=== PATIENT | male | born 1960 | race Caucasian/White ===

== ENCOUNTER → 2016-03-28 | Outpatient (CLI) | payer MEDICAID ==
[~2016-03-28] MED LIST: ALB0.5V IH; ALBU2.5V4 NEB; ALBU8.5H2 IH; AMLO10TA82 PO; AMOX500C2 PO; ARPZ30T PO; ASPI-999 PO; ATOR10TA66 PO; AZIT-21 PO; AZIT250T PO; BENA10TA2 PO; BENZ0.5T3 PO; BNZT1T PO; CANA100T PO; CANA300T PO; CEPH250T PO; CLIN300C3 PO; CPR500T PO; CYCL1DRO OP; CYCL1DRO OU; DEXL60CA5 PO; DOXY100C2 PO; DULO60CA6 PO; FERR325C PO; FLC150T PO; FLUSH PO; FLUT1DIS28 IH; GBPN300C PO; HALO5TAB PO; HALO5TAB17 PO; HUMULIN; HYDR-2856 PO; HYDR-2890 PO; HYDR-34 PO; HYDR1TAB86 PO; HYDR50TA76 PO; INSU100C4 SQ; INSU100V3 SQ; IRON45TA2 PO; LNS30CCR PO; LORA0.5T PO; MAGN400T6 PO; MELO-195 PO; METO25TA4 PO; METR500T PO; MTF500T PO; MULT-963 PO; NAPR-243 PO; NYST1POW15 TOP; PALI6TAB2 PO; PENI500T PO; POTA20TA7 PO; PRD20T PO; RISP0.5T24 PO; ROFL500T PO; SCR1T1 PO; SULF1TAB38 PO; TESTOSTERONE PO; TIOT18CA2 IH; TRAZ150T42 PO; TRAZ150T72 PO; TRZ100T PO; WRF3T PO
--- OUTSIDE RECORDS SUMMARY | 2016-03-28 09:42 | XMS REPORT | Continuity of Care Document ---
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 07/22/2011 Ot 278.01 MORBID OBESITY 07/22/2011 Ot 285.9 ANEMIA NOS 07/22/2011 Ot 295.90 SCHIZOPHRENIA NOS-UNSPEC 07/22/2011 Ot 327.23 OBSTRUCTIVE SLEEP APNEA (ADULT) (PEDIATR 07/22/2011 Ot 491.21 OBSTR CHRONIC BRONCHITIS, W (ACUTE) EXAC 07/22/2011 Ot 507.0 FOOD/VOMIT PNEUMONITIS 07/22/2011 Ot 530.81 ESOPHAGEAL REFLUX 07/22/2011 Ot 785.52 SEPTIC SHOCK 07/22/2011 Ot 790.29 OTHER ABNORMAL GLUCOSE 07/22/2011 Ot 995.92 SEVERE SEPSIS 07/22/2011 Ot V85.41 BODY MASS INDEX 40.0-44.9, ADULT 11/18/2011 Ot 496 CHR AIRWAY OBSTRUCT NEC 11/18/2011 Ot 781.2 ABNORMALITY OF GAIT 11/18/2011 Ot V57.1 PHYSICAL THERAPY NEC 12/19/2011 Ot 453.40 ACUTE VENOUS EMBOLISM THROMBOSIS UNSP 02/18/2012 Ot 453.40 ACUTE VENOUS EMBOLISM THROMBOSIS UNSP 04/20/2012 Ot 530.11 REFLUX ESOPHAGITIS 04/20/2012 Ot 532.90 DUODENAL ULCER NOS 04/20/2012 Ot 535.50 UNSP GASTRITIS GASTRODUODENITIS W/O ME 04/25/2012 Ot 250.00 DIAB TING WO COMPL, TYPE II OR UNSPEC TY 04/25/2012 Ot 305.1 TOBACCO USE DISORDER 04/25/2012 Ot 401.9 HYPERTENSION NOS 04/25/2012 Ot 496 CHR AIRWAY OBSTRUCT NEC 04/25/2012 Ot 530.81 ESOPHAGEAL REFLUX 04/25/2012 Ot 533.90 PEPTIC ULCER NOS 04/25/2012 Ot 564.00 UNSPEC CONSTIPATION 04/25/2012 Ot 715.90 OSTEOARTHROS NOS-UNSPEC 04/25/2012 Ot 786.59 CHEST PAIN NEC 04/25/2012 Ot V12.51 HX-VENOUS THROMBOSIS EMBOLISM 06/07/2012 Ot 453.40 ACUTE VENOUS EMBOLISM THROMBOSIS UNSP 11/09/2012 JON MEADOWS, PAM Cruz Ot 112.3 CUTANEOUS CANDIDIASIS 11/09/2012 JON MEADOWS, PAM Cruz Ot 250.00 DIAB TING WO COMPL, TYPE II OR UNSPEC TY 11/09/2012 JON MEADOWS, PAM Cruz Ot 491.21 OBSTR CHRONIC BRONCHITIS, W (ACUTE) EXAC 11/09/2012 JON MEADOWS, PAM Cruz Ot 786.05 SHORTNESS OF BREATH 11/09/2012 JON MEADOWS, PAM Cruz Ot 787.01 NAUSEA WITH VOMITING 01/24/2013 YEN DURÁN DO Ot 250.02 DIAB TING WO COMPL, TYPE II OR UNSPEC TY 01/24/2013 YEN DURÁN DO Ot 276.51 DEHYDRATION 01/24/2013 YEN DURÁN DO Ot 278.01 MORBID OBESITY 01/24/2013 YEN DURÁN DO Ot 295.90 SCHIZOPHRENIA NOS-UNSPEC 01/24/2013 YEN DURÁN DO Ot 300.00 ANXIETY STATE NOS 01/24/2013 YEN DURÁN DO Ot 305.1 TOBACCO USE DISORDER 01/24/2013 YEN DURÁN DO Ot 311 DEPRESSIVE DISORDER NEC 01/24/2013 YEN DURÁN DO Ot 401.9 HYPERTENSION NOS 01/24/2013 YEN DURÁN DO Ot 496 CHR AIRWAY OBSTRUCT NEC 01/24/2013 YEN DURÁN DO Ot 530.81 ESOPHAGEAL REFLUX 01/24/2013 YEN DURÁN DO Ot 536.8 STOMACH FUNCTION DIS NEC 01/24/2013 YEN DURÁN DO Ot 552.21 OBSTR INCISIONAL HERNIA 01/24/2013 YEN DURÁN DO Ot 715.90 OSTEOARTHROS NOS-UNSPEC 01/24/2013 YEN DURÁN DO Ot 737.10 KYPHOSIS NOS 01/24/2013 LUIS ARMANDO RENOYEN Ot V18.0 FAM HX-DIABETES MELLITUS 01/24/2013 LUIS ARMANDO RENOYEN Ot V58.67 LONG-TERM (CURRENT) USE OF INSULIN 01/24/2013 LUIS ARMANDO RENOYEN Ot V85.41 BODY MASS INDEX 40.0-44.9, ADULT 03/13/2013 LUIS ARMANDO RENOYEN Ot 041.12 METHICILLIN RESISTANT STAPHYLOCOCCUS AUR 03/13/2013 LUIS ARMANDO RENOYEN Ot 250.00 DIAB TING WO COMPL, TYPE II OR UNSPEC TY 03/13/2013 SHONDER YEN Ot 278.00 OBESITY, NOS 03/13/2013 LUIS ARMANDO RENOYEN Ot 295.90 SCHIZOPHRENIA NOS-UNSPEC 03/13/2013 LUIS ARMANDO RENOYEN Ot 300.00 ANXIETY STATE NOS 03/13/2013 LUIS ARMANDO RENOYEN Ot 305.1 TOBACCO USE DISORDER 03/13/2013 LUIS ARMANDO RENOYEN Ot 311 DEPRESSIVE DISORDER NEC 03/13/2013 LUIS ARMANDO RENOYEN Ot 401.9 HYPERTENSION NOS 03/13/2013 LUIS ARMANDO RENOYEN Ot 496 CHR AIRWAY OBSTRUCT NEC 03/13/2013 LUIS ARMANDO RENOYEN Ot 530.81 ESOPHAGEAL REFLUX 03/13/2013 LUIS ARMANDO RENOYEN Ot 553.29 VENTRAL HERNIA NEC 03/13/2013 LUIS ARMANDO RENOYEN Ot 682.3 CELLULITIS OF ARM 03/13/2013 LUIS ARMANDO RENOYEN Ot 705.83 HIDRADENITIS 03/13/2013 LUIS ARMANDO RENOYEN Ot 716.90 ARTHROPATHY NOS-UNSPEC 03/13/2013 LUIS ARMANDO RENOYEN Ot 780.4 DIZZINESS AND GIDDINESS 03/13/2013 LUIS ARMANDO RENOYEN Ot V12.71 PERSONAL HISTORY OF PEPTIC ULCER DISEASE 03/13/2013 LUIS ARMANDO RENOYEN Ot V15.81 HX OF PAST NONCOMPLIANCE 03/13/2013 LUIS ARMANDO RENOYEN Ot V85.41 BODY MASS INDEX 40.0-44.9, ADULT 11/25/2013 GIOVANNI JUAREZ DO Ot 300.00 ANXIETY STATE NOS 11/25/2013 GIOVANNI JUAREZ DO Ot V58.69 OTH MED,LT,CURRENT USE 12/18/2013 [employer] APRN Ot 724.2 LUMBAGO 01/01/2014 CHAVEZ THOMPSON Ot 521.00 UNSPEC DENTAL CARIES 01/01/2014 CHAVEZ THOMPSON Ot 522.5 PERIAPICAL ABSCESS 01/01/2014 CHAVEZ THOMPSON Ot 525.9 DENTAL DISORDER NOS 01/05/2014 Ot 715.35 01/05/2014 Ot 722.52 01/05/2014 Ot 715.36 01/05/2014 Ot V58.61 01/05/2014 Ot V58.83 01/05/2014 Ot V58.61 01/05/2014 Ot V58.83 01/05/2014 Ot 285.9 01/05/2014 Ot 401.9 01/05/2014 Ot 428.0 01/05/2014 Ot 453.40 01/05/2014 Ot 285.9 01/05/2014 Ot 401.9 01/05/2014 Ot 428.0 01/05/2014 Ot 453.40 01/05/2014 Ot V72.84 01/05/2014 Ot 453.40 01/05/2014 AISHA GRULLON MD Ot 715.95 01/05/2014 AISHA GRULLON MD Ot 722.52 01/05/2014 AMY ROJAS DO Ot 278.01 01/05/2014 AMY ROJAS DO Ot 300.00 01/05/2014 AMY ROJAS DO Ot 311 01/05/2014 AMY ROJAS DO Ot 496 01/05/2014 AMY ROJAS DO Ot 530.81 01/05/2014 AMY ROJAS DO Ot 780.79 01/05/2014 AMY ROJAS DO Ot 786.09 01/05/2014 Ot 250.00 01/05/2014 Ot 272.4 01/05/2014 Ot 414.00 01/05/2014 YEN DURÁN DO Ot 721.3 01/06/2014 YEN DURÁN DO Ot 721.3 01/13/2014 ANN MATA MD Ot 295.90 SCHIZOPHRENIA NOS-UNSPEC 01/13/2014 ANN MATA MD Ot 300.00 ANXIETY STATE NOS 01/13/2014 ANN MATA MD Ot 311 DEPRESSIVE DISORDER NEC 01/13/2014 ADOLFO MEADOWS, ANN Khan Ot V58.69 OTH MED,LT,CURRENT USE 01/23/2014 CHAVEZ THOMPSON Ot 295.90 SCHIZOPHRENIA NOS-UNSPEC 01/23/2014 CHAVEZ THOMPSON Ot 300.00 ANXIETY STATE NOS 01/23/2014 CHAVEZ THOMPSON Ot 311 DEPRESSIVE DISORDER NEC 02/04/2014 AMY ROJAS DO Ot 496 02/04/2014 YEN DURÁN DO Ot 250.00 02/04/2014 YEN DURÁN DO A Ot 496 03/11/2014 JON MEADOWS, PAM Cruz Ot 295.90 SCHIZOPHRENIA NOS-UNSPEC 03/11/2014 PAM WEBB MD Ot V62.84 SUICIDAL IDEATION 03/11/2014 PAM WEBB MD Ot V62.85 HOMICIDAL IDEATION 04/18/2014 Ot 295.90 SCHIZOPHRENIA NOS-UNSPEC 05/11/2014 Ot 715.35 05/11/2014 Ot 722.52 05/11/2014 Ot 715.36 05/11/2014 Ot V58.61 05/11/2014 Ot V58.83 05/11/2014 Ot V58.61 05/11/2014 Ot V58.83 05/11/2014 Ot 285.9 05/11/2014 Ot 401.9 05/11/2014 Ot 428.0 05/11/2014 Ot 453.40 05/11/2014 Ot 285.9 05/11/2014 Ot 401.9 05/11/2014 Ot 428.0 05/11/2014 Ot 453.40 05/11/2014 Ot V72.84 05/11/2014 Ot 453.40 05/11/2014 AISHA GRULLON MD Ot 715.95 05/11/2014 AISHA GRULLON MD Ot 722.52 05/11/2014 AMY ROJAS DO Ot 278.01 05/11/2014 AMY ROJAS DO Ot 300.00 05/11/2014 AMY ROJAS DO Ot 311 05/11/2014 AMY ROJAS DO Ot 496 05/11/2014 AMY ROJAS DO Ot 530.81 05/11/2014 AMY ROJAS DO Ot 780.79 05/11/2014 CRYSTAL AMY RENO Ot 786.09 05/11/2014 CRYSTAL DOAMY Ot 496 05/11/2014 Ot 250.00 05/11/2014 Ot 272.4 05/11/2014 Ot 414.00 05/11/2014 GELLENDER DO, YEN Daniels Ot 721.3 05/11/2014 GELLENDER DO, YEN Daniels Ot 250.00 05/11/2014 GELLENDER DO, YEN Daniels Ot 496 05/12/2014 GELLENDER DO, YEN Daniels Ot 716.90 05/12/2014 GELLENDER DO, YEN Daniels Ot 719.7 05/12/2014 GELLENDER DO, YEN Daniels Ot V57.1 05/16/2014 GELLENDER DO, YEN Daniels Ot 716.90 05/16/2014 GELLENDER DO, YEN Daniels Ot 719.7 05/16/2014 GELLENDER DO, YEN Daniels Ot V57.1 05/18/2014 GELLENDER DO, YEN Daniels Ot 716.90 05/18/2014 GELLENDER DO, YEN Daniels Ot 719.7 05/18/2014 GELLENDER DO, YEN Daniels Ot V57.1 05/18/2014 GELLENDER DO, YEN Daniels Ot 716.90 05/18/2014 GELLENDER DO, YEN Daniels Ot 719.7 05/18/2014 GELLENDER DO, YEN Daniels Ot V57.1 05/20/2014 GELLENDER DO, YEN Daniels Ot 716.90 05/20/2014 GELLENDER DO, YEN Daniels Ot 719.7 05/20/2014 GELLENDER DO, YEN Daniels Ot V57.1 05/20/2014 GELLENDER DO, YEN Daniels Ot 716.90 05/20/2014 GELLENDER DO, YEN Daniels Ot 719.7 05/20/2014 GELLENDER DO, YEN Daniels Ot V57.1 05/24/2014 Ot 715.35 05/24/2014 Ot 722.52 05/24/2014 Ot 715.36 05/24/2014 Ot V58.61 05/24/2014 Ot V58.83 05/24/2014 Ot V58.61 05/24/2014 Ot V58.83 05/24/2014 Ot 285.9 05/24/2014 Ot 401.9 05/24/2014 Ot 428.0 05/24/2014 Ot 453.40 05/24/2014 Ot 285.9 05/24/2014 Ot 401.9 05/24/2014 Ot 428.0 05/24/2014 Ot 453.40 05/24/2014 Ot V72.84 05/24/2014 Ot 453.40 05/24/2014 MITCHEL MEADOWS, AISHA L Ot 715.95 05/24/2014 MITCHLE MEADOWS, AISHA L Ot 722.52 05/24/2014 CRYSTAL DO, AMY M Ot 278.01 05/24/2014 CRYSATL DO, AMY M Ot 300.00 05/24/2014 CRYSTAL DO, AMY M Ot 311 05/24/2014 CRYSTAL DO, AMY M Ot 496 05/24/2014 CRYSTAL DO, AMY M Ot 530.81 05/24/2014 CRYSTAL DO, AMY Nice Ot 780.79 05/24/2014 CRYSTAL DO, AMY Nice Ot 786.09 05/24/2014 CRYSTAL DO, AMY Nice Ot 496 05/24/2014 Ot 250.00 05/24/2014 Ot 272.4 05/24/2014 Ot 414.00 05/24/2014 GELLENDER DO, YEN Daniels Ot 721.3 05/24/2014 GELLENDER DO, YEN Daniels Ot 250.00 05/24/2014 GELLENDER DO, YEN Daniels Ot 496 05/24/2014 GELLENDER DO, YEN Daniels Ot 716.90 05/24/2014 GELLENDER DO, YEN Daniels Ot 719.7 05/24/2014 GELLENDER DO, YEN Daniels Ot V57.1 05/31/2014 GELLENDER DO, YEN Daniels Ot 716.90 05/31/2014 GELLENDER DO, YEN Daniels Ot 719.7 05/31/2014 GELLENDER DO, YEN Daniels Ot V57.1 06/13/2014 GELLENDER DO, YEN Daniels Ot 250.00 06/13/2014 GELLENDER DO, YEN Daniels Ot 272.4 06/17/2014 GELLENDER DO, YEN Daniels Ot 716.90 06/17/2014 GELLENDER DO, YEN Daniels Ot 719.7 06/17/2014 GELLENDER DO, YEN Daniels Ot V57.1 06/17/2014 GELLENDER DO, YEN Daniels Ot 716.90 06/17/2014 GELLENDER DO, YEN Daniels Ot 719.7 06/17/2014 GELLENDER DO, YEN Daniels Ot V57.1 07/18/2014 Ot 715.35 07/18/2014 Ot 722.52 07/18/2014 Ot 715.36 07/18/2014 Ot V58.61 07/18/2014 Ot V58.83 07/18/2014 Ot V58.61 07/18/2014 Ot V58.83 07/18/2014 Ot 285.9 07/18/2014 Ot 401.9 07/18/2014 Ot 428.0 07/18/2014 Ot 453.40 07/18/2014 Ot 285.9 07/18/2014 Ot 401.9 07/18/2014 Ot 428.0 07/18/2014 Ot 453.40 07/18/2014 Ot V72.84 07/18/2014 Ot 453.40 07/18/2014 AISHA GRULLON MD Ot 715.95 07/18/2014 AISHA GRULLON MD Ot 722.52 07/18/2014 CRYSTAL DO, AMY M Ot 278.01 07/18/2014 CRYSTAL DO, AMY M Ot 300.00 07/18/2014 CRYSTAL DO, AMY M Ot 311 07/18/2014 CRYSTAL DO, AMY M Ot 496 07/18/2014 CRYSTAL DO, AMY M Ot 530.81 07/18/2014 CRYSTAL DO, AMY M Ot 780.79 07/18/2014 CRYSTAL DO, AMY M Ot 786.09 07/18/2014 CRYSTAL DO, AMY M Ot 496 07/18/2014 Ot 250.00 07/18/2014 Ot 272.4 07/18/2014 Ot 414.00 07/18/2014 GELLENDER DO, YEN A Ot 721.3 07/18/2014 GELLENDER DO, YEN Daniels Ot 250.00 07/18/2014 GELLENDER DO, YEN Daniels Ot 496 07/18/2014 GELLENDER DO, YEN Daniels Ot 716.90 07/18/2014 GELLENDER DO, YEN Daniels Ot 719.7 07/18/2014 GELLENDER DO, YEN Daniels Ot V57.1 07/18/2014 GELLENDER DO, YEN Daniels Ot 250.00 07/18/2014 GELLENDER DO, YEN Daniels Ot 272.4 07/18/2014 GELLENDER DO, YEN Daniels Ot 716.90 07/18/2014 GELLENDER DO, YEN Daniels Ot 719.7 07/18/2014 GELLENDER DO, YEN Daniels Ot V57.1 07/19/2014 GELLENDER DO, YEN Daniels Ot 716.90 07/19/2014 GELLENDER DO, YEN Daniels Ot 719.7 07/19/2014 GELLENDER DO, YEN Daniels Ot V57.1 08/09/2014 GELLENDER DO, YEN Daniels Ot 716.90 ARTHROPATHY NOS-UNSPEC 08/09/2014 GELLENDER DO, YEN Frances Ot 719.7 DIFFICULTY IN WALKING 08/09/2014 GELLENDER DO, YEN Frances Ot V57.1 PHYSICAL THERAPY NEC 08/09/2014 GELLENDER DO, YEN Daniels Ot 716.90 08/09/2014 GELLENDER DO, YEN Daniels Ot 719.7 08/09/2014 GELLENDER DO, YEN Frances Ot V57.1 08/24/2014 GELLENDER DO, YEN Daniels Ot 716.90 08/24/2014 GELLENDER DO, YEN Daniels Ot 719.7 08/24/2014 GELLENDER DO, YEN Daniels Ot V57.1 08/25/2014 GELLENDER DO, YEN Daniels Ot 716.90 08/25/2014 GELLENDER DO, YEN Daniels Ot 719.7 08/25/2014 GELLENDER DO, YEN Daniels Ot V57.1 08/25/2014 GELLENDER DO, YEN Daniels Ot 716.90 08/25/2014 GELLENDER DO, YEN Frances Ot 719.7 08/25/2014 GELLENDER DO, YEN Frances Ot V57.1 08/25/2014 GELLENDER DO, YEN Frances Ot 716.90 08/25/2014 GELLENDER DO, YEN Daniels Ot 719.7 08/25/2014 GELLENDER DO, YEN Daniels Ot V57.1 08/25/2014 GELLENDER DO, YEN Frances Ot 716.90 08/25/2014 GELLENDER DO, YEN Daniels Ot 719.7 08/25/2014 GELLENDER DO, YEN Daniels Ot V57.1 08/25/2014 GELLENDER DO, YEN A Ot 716.90 08/25/2014 GELLENDER DO, YEN Daniels Ot 719.7 08/25/2014 GELLENDER DO, YEN Daniels Ot V57.1 09/06/2014 GELLENDER DO, YEN Daniels Ot 716.90 09/06/2014 GELLENDER DO, YEN Daniels Ot 719.7 09/06/2014 GELLENDER DO, YEN Daniels Ot V57.1 09/06/2014 GELLENDER DO, YEN Daniels Ot 716.90 09/06/2014 GELLENDER DO, YEN Daniels Ot 719.7 09/06/2014 GELLENDER DO, YEN Daniels Ot V57.1 09/20/2014 GELLENDER DO, YEN Daniels Ot 716.90 09/20/2014 GELLENDER DO, YEN Daniels Ot 719.7 09/20/2014 GELLENDER DO, YEN Daniels Ot V57.1 09/20/2014 GELLENDER DO, YEN Daniels Ot 716.90 09/20/2014 GELLENDER DO, YEN Daniels Ot 719.7 09/20/2014 GELLENDER DO, YEN Daniels Ot V57.1 09/20/2014 GELLENDER DO, YEN Daniels Ot 716.90 09/20/2014 GELLENDER DO, YEN Daniels Ot 719.7 09/20/2014 GELLENDER DO, YEN Daniels Ot V57.1 09/29/2014 GELLENDER DO, YEN Daniels Ot 716.90 ARTHROPATHY NOS-UNSPEC 09/29/2014 GELLENDER DO, YEN Daniels Ot 719.7 DIFFICULTY IN WALKING 09/29/2014 GELLENDER DO, YEN Daniels Ot V57.1 PHYSICAL THERAPY NEC 11/07/2014 GELLENDER DO, YEN Daniels Ot 250.00 11/07/2014 GELLENDER DO, YEN Daniels Ot 496 11/21/2014 Ot 715.35 11/21/2014 Ot 722.52 11/21/2014 Ot 715.36 11/21/2014 Ot V58.61 11/21/2014 Ot V58.83 11/21/2014 Ot V58.61 11/21/2014 Ot V58.83 11/21/2014 Ot 285.9 11/21/2014 Ot 401.9 11/21/2014 Ot 428.0 11/21/2014 Ot 453.40 11/21/2014 Ot 285.9 11/21/2014 Ot 401.9 11/21/2014 Ot 428.0 11/21/2014 Ot 453.40 11/21/2014 Ot V72.84 11/21/2014 Ot 453.40 11/21/2014 MITCHEL MEADOWS, AISHA Mccloud Ot 715.95 11/21/2014 AISHA GRULLON MD Ot 722.52 11/21/2014 CRYSTAL DO, AMY M Ot 278.01 11/21/2014 CRYSTAL DO, AMY M Ot 300.00 11/21/2014 CRYSTAL DO, AMY M Ot 311 11/21/2014 CRYSTAL DO, AMY M Ot 496 11/21/2014 AMY ROJAS DO M Ot 530.81 11/21/2014 CRYSTAL RENO, AMY M Ot 780.79 11/21/2014 CRYSTAL RENO, AMY M Ot 786.09 11/21/2014 AMY ROJAS DO Ot 496 11/21/2014 Ot 250.00 11/21/2014 Ot 272.4 11/21/2014 Ot 414.00 11/21/2014 GELLENDER DO, YEN A Ot 721.3 11/21/2014 GELLENDER DO, YEN A Ot 250.00 11/21/2014 GELLENDER DO, YEN A Ot 496 11/21/2014 GELLENDER DO, YEN A Ot 250.00 11/21/2014 GELLENDER DO, YEN A Ot 272.4 11/21/2014 MELONIE MEADOWS, JENNY Nice Ot V12.72 11/21/2014 MLEONIE MEADOWS, JENNY Nice Ot V72.84 11/21/2014 GELLENDER DO, YEN A Ot 250.00 11/21/2014 GELLENDER DO, YEN A Ot 496 11/21/2014 MELONIE MEADOWS, JENNY Nice Ot Z01.818 11/21/2014 MELONIE MEADOWS, JENNY Nice Ot Z86.010 12/19/2014 MELONIE MEADOWS, JENNY Nice Ot Z09 ENCNTR FOR F/U EXAM AFT TRTMT FOR COND O 12/19/2014 MELONIE MEADOWS, JENNY Nice Ot Z86.010 PERSONAL HISTORY OF COLONIC POLYPS 01/17/2015 Ot 715.35 01/17/2015 Ot 722.52 01/17/2015 Ot 715.36 01/17/2015 Ot V58.61 01/17/2015 Ot V58.83 01/17/2015 Ot V58.61 01/17/2015 Ot V58.83 01/17/2015 Ot 285.9 01/17/2015 Ot 401.9 01/17/2015 Ot 428.0 01/17/2015 Ot 453.40 01/17/2015 Ot 285.9 01/17/2015 Ot 401.9 01/17/2015 Ot 428.0 01/17/2015 Ot 453.40 01/17/2015 Ot V72.84 01/17/2015 Ot 453.40 01/17/2015 MITCHEL MEADOWS, AISHA L Ot 715.95 01/17/2015 MITCHEL MEADOWS, AISHA L Ot 722.52 01/17/2015 AYM ROJAS DO Ot 278.01 01/17/2015 AMY ROJAS DO Ot 300.00 01/17/2015 AMY ROJAS DO Ot 311 01/17/2015 AMY ROJAS DO Ot 496 01/17/2015 AMY ROJAS DO Ot 530.81 01/17/2015 AMY ROJAS DO Ot 780.79 01/17/2015 AMY ROJAS DO Ot 786.09 01/17/2015 AMY ROJAS DO Ot 496 01/17/2015 Ot 250.00 01/17/2015 Ot 272.4 01/17/2015 Ot 414.00 01/17/2015 LUIS ARMANDO RENO YEN Frances Ot 721.3 01/17/2015 SHONDER DOYEN A Ot 250.00 01/17/2015 GELLENDER DO, YEN A Ot 496 01/17/2015 GELLENDER DO, YEN A Ot 250.00 01/17/2015 GELLENDER DO, YEN A Ot 272.4 01/17/2015 MELONIE MEADOWS, JENNY Nice Ot V12.72 01/17/2015 MELONIE MEADOWS, JENNY Nice Ot V72.84 01/17/2015 GELLENDER DOYEN Ot 250.00 01/17/2015 GELLENDER DO, YEN A Ot 496 01/17/2015 MELONIE MEADOWS, JENNY Nice Ot Z01.818 01/17/2015 MELONIE MEADOWS, JENNY Nice Ot Z86.010 01/17/2015 MELONIE MEADOWS, JENNY Nice Ot Z01.818 01/17/2015 MELONIE MEADOWS, JENNY M Ot Z01.818 01/31/2015 GELLENDER DOYEN Ot M54.5 02/13/2015 Ot 715.35 02/13/2015 Ot 722.52 02/13/2015 Ot 715.36 02/13/2015 Ot V58.61 02/13/2015 Ot V58.83 02/13/2015 Ot V58.61 02/13/2015 Ot V58.83 02/13/2015 Ot 285.9 02/13/2015 Ot 401.9 02/13/2015 Ot 428.0 02/13/2015 Ot 453.40 02/13/2015 Ot 285.9 02/13/2015 Ot 401.9 02/13/2015 Ot 428.0 02/13/2015 Ot 453.40 02/13/2015 Ot V72.84 02/13/2015 Ot 453.40 02/13/2015 AISHA GRULLON MD Ot 715.95 02/13/2015 AISHA GRULLON MD Ot 722.52 02/13/2015 CRYSTAL AMY RENO Ot 278.01 02/13/2015 CRYSTAL AMY RENO Ot 300.00 02/13/2015 CRYSTAL AMY RENO M Ot 311 02/13/2015 CRYSTAL AMY RENO Ot 496 02/13/2015 CRYSTALAMY KEARNEY DO M Ot 530.81 02/13/2015 CRYSTALAMY KEARNEY DO Ot 780.79 02/13/2015 CRYSTAL AMY RENO Ot 786.09 02/13/2015 CRYSTAL AMY RENO Ot 496 02/13/2015 Ot 250.00 02/13/2015 Ot 272.4 02/13/2015 Ot 414.00 02/13/2015 GELLENDER DOYEN A Ot 721.3 02/13/2015 GELLENDER DO, YEN A Ot 250.00 02/13/2015 GELLENDER DO, YEN A Ot 496 02/13/2015 GELLENDER DO, YEN A Ot 250.00 02/13/2015 GELLENDER DO, YEN A Ot 272.4 02/13/2015 MELONIE MEDAOWS, JENNY Nice Ot V12.72 02/13/2015 MELONIE MEADOWS, JENNY Nice Ot V72.84 02/13/2015 GELLENYEN GEORGE DO Ot 250.00 02/13/2015 YEN DURÁN DO Ot 496 02/13/2015 MELONIE MEADOWS, JENNY Nice Ot Z01.818 02/13/2015 MELONIE MEADOWS, JENNY Nice Ot Z86.010 02/13/2015 MELONIE MEADOWS, JENNY Nice Ot Z01.818 02/13/2015 MELONIE MEADOWS, JENNY Nice Ot Z01.818 02/13/2015 IRAWADEYEN GEORGE DO Ot M54.5 03/03/2015 Ot 715.35 03/03/2015 Ot 722.52 03/03/2015 Ot 715.36 03/03/2015 Ot V58.61 03/03/2015 Ot V58.83 03/03/2015 Ot V58.61 03/03/2015 Ot V58.83 03/03/2015 Ot 285.9 03/03/2015 Ot 401.9 03/03/2015 Ot 428.0 03/03/2015 Ot 453.40 03/03/2015 Ot 285.9 03/03/2015 Ot 401.9 03/03/2015 Ot 428.0 03/03/2015 Ot 453.40 03/03/2015 Ot V72.84 03/03/2015 Ot 453.40 03/03/2015 MITCHEL MEADOWS, AISHA Mccloud Ot 715.95 03/03/2015 MITCHEL MEADOWS, AISHA Mccloud Ot 722.52 03/03/2015 AMY ROJAS DO Ot 278.01 03/03/2015 AMY ROJAS DO M Ot 300.00 03/03/2015 AMY ROJAS DO M Ot 311 03/03/2015 AMY ROJAS DO M Ot 496 03/03/2015 AMY ROJAS DO M Ot 530.81 03/03/2015 AMY ROJAS DO M Ot 780.79 03/03/2015 AMY ROJAS DO M Ot 786.09 03/03/2015 AMY ROJAS DO M Ot 496 03/03/2015 Ot 250.00 03/03/2015 Ot 272.4 03/03/2015 Ot 414.00 03/03/2015 LUIS ARMANDO RENO YEN Daniels Ot 721.3 03/03/2015 LUIS ARMANDO RENO YEN Daniels Ot 250.00 03/03/2015 GELLENDER YEN RENO Ot 496 03/03/2015 GELLENDER YEN RENO Ot 250.00 03/03/2015 YEN DURÁN DO Ot 272.4 03/03/2015 MELONIE MEADOWS, JENNY Tex Ot V12.72 03/03/2015 MELONIE MEADOWS, JENNY Nice Ot V72.84 03/03/2015 YEN DURÁN DO Ot 250.00 03/03/2015 YEN DURÁN DO Ot 496 03/03/2015 MELONIE MEADOWS, JENNY M Ot Z01.818 03/03/2015 MELONIE MEADOWS, JENNY M Ot Z86.010 03/03/2015 MELONIE MEADOWS, JENNY M Ot Z01.818 03/03/2015 MELONIE MEADOWS, JENNY Tex Ot Z01.818 03/03/2015 YEN DURÁN DO Ot M54.5 03/03/2015 [employer] Ot F17.210 NICOTINE DEPENDENCE, CIGARETTES, UNCOMPL 03/03/2015 [employer] Ot J44.1 CHRONIC OBSTRUCTIVE PULMONARY DISEASE W 04/06/2015 YEN DURÁN DO Ot M54.9 04/13/2015 IRALENYEN GEORGE DO Ot M54.9 05/03/2015 YEN DURÁN DO Ot M54.9 05/08/2015 YEN DURÁN DO Ot M54.9 DORSALGIA, UNSPECIFIED 02/06/2016 Ot 715.35 LOC OSTEOARTH NOS-PELVIS 02/06/2016 Ot 722.52 LUMB/LUMBOSAC DISC DEGEN 02/06/2016 Ot 715.36 LOC OSTEOARTH NOS-L/LEG 02/06/2016 Ot V58.61 ANTICOAGULANTS,LT,CURRENT USE 02/06/2016 Ot V58.83 ENCOUNTER FOR THERAPEUTIC DRUG MONITORIN 02/06/2016 Ot V58.61 ANTICOAGULANTS,LT,CURRENT USE 02/06/2016 Ot V58.83 ENCOUNTER FOR THERAPEUTIC DRUG MONITORIN 02/06/2016 Ot 285.9 ANEMIA NOS 02/06/2016 Ot 401.9 HYPERTENSION NOS 02/06/2016 Ot 428.0 CONGESTIVE HEART FAILURE NOS 02/06/2016 Ot 453.40 ACUTE VENOUS EMBOLISM THROMBOSIS UNSP 02/06/2016 Ot 285.9 ANEMIA NOS 02/06/2016 Ot 401.9 HYPERTENSION NOS 02/06/2016 Ot 428.0 CONGESTIVE HEART FAILURE NOS 02/06/2016 Ot 453.40 ACUTE VENOUS EMBOLISM THROMBOSIS UNSP 02/06/2016 Ot V72.84 EXAM PRE-OPERATIVE NOS 02/06/2016 Ot 453.40 ACUTE VENOUS EMBOLISM THROMBOSIS UNSP 02/06/2016 AISHA GRULLON MD Ot 715.95 OSTEOARTHROS NOS-PELVIS 02/06/2016 AISHA GRULLON MD Ot 722.52 LUMB/LUMBOSAC DISC DEGEN 02/06/2016 AMY ROJAS DO Ot 278.01 MORBID OBESITY 02/06/2016 AMY ROJAS DO Ot 300.00 ANXIETY STATE NOS 02/06/2016 AMY ROJAS DO Ot 311 DEPRESSIVE DISORDER NEC 02/06/2016 AMY ROJAS DO Ot 496 CHR AIRWAY OBSTRUCT NEC 02/06/2016 AMY ROAJS DO Ot 530.81 ESOPHAGEAL REFLUX 02/06/2016 AMY ROJAS DO Ot 780.79 OTH MALAISE FATIGUE 02/06/2016 AMY ROJAS DO Ot 786.09 RESPIRATORY ABNORM NEC 02/06/2016 AMY ROJAS DO Ot 496 CHR AIRWAY OBSTRUCT NEC 02/06/2016 Ot 250.00 DIAB TING WO COMPL, TYPE II OR UNSPEC TY 02/06/2016 Ot 272.4 HYPERLIPIDEMIA NEC/NOS 02/06/2016 Ot 414.00 CORON ATHEROSCLER NOS TYPE VESSEL, NATIV 02/06/2016 YEN DURÁN DO Ot 721.3 LUMBOSACRAL SPONDYLOSIS 02/06/2016 YEN DURÁN DO Ot 250.00 DIAB TING WO COMPL, TYPE II OR UNSPEC TY 02/06/2016 YEN DURÁN DO Ot 496 CHR AIRWAY OBSTRUCT NEC 02/06/2016 YEN DURÁN DO Ot 250.00 DIAB TING WO COMPL, TYPE II OR UNSPEC TY 02/06/2016 YEN DURÁN DO Ot 272.4 HYPERLIPIDEMIA NEC/NOS 02/06/2016 JENNY WILHELM MD Ot V12.72 PERSONAL HISTORY OF COLONIC POLYPS 02/06/2016 JENNY WILHELM MD Ot V72.84 EXAM PRE-OPERATIVE NOS 02/06/2016 YEN DURÁN DO Ot 250.00 DIAB TING WO COMPL, TYPE II OR UNSPEC TY 02/06/2016 YEN DURÁN DO Ot 496 CHR AIRWAY OBSTRUCT NEC 02/06/2016 MELONIE MEADOWS, JENNY Nice Ot Z01.818 ENCOUNTER FOR OTHER PREPROCEDURAL EXAMIN 02/06/2016 JENNY WILHELM MD Ot Z86.010 PERSONAL HISTORY OF COLONIC POLYPS 02/06/2016 MELONIE MEADOWS, JENNY Nice Ot Z01.818 ENCOUNTER FOR OTHER PREPROCEDURAL EXAMIN 02/06/2016 JENNY WILHELM MD Ot Z01.818 ENCOUNTER FOR OTHER PREPROCEDURAL EXAMIN 02/06/2016 YEN DURÁN DO Ot M54.5 LOW BACK PAIN 02/07/2016 GAGAN MEADOWS FACC, ALI FACP CCDS Ot E11.9 TYPE 2 DIABETES MELLITUS WITHOUT COMPLIC 02/07/2016 GAGAN MEADOWS FACC, ALI FACP CCDS Ot E66.09 OTHER OBESITY DUE TO EXCESS CALORIES 02/07/2016 GAGAN MEADOWS FACC, ALI FACP CCDS Ot R06.02 SHORTNESS OF BREATH 02/07/2016 GAGAN MEADOWS FACC, ALI FACP CCDS Ot Z72.0 TOBACCO USE 02/08/2016 GAGAN MEADOWS FACC, ALI FACP CCDS Ot E11.9 TYPE 2 DIABETES MELLITUS WITHOUT COMPLIC 02/08/2016 GAGAN MEADOWS FACC, ALI FACP CCDS Ot E66.09 OTHER OBESITY DUE TO EXCESS CALORIES 02/08/2016 GAGAN MEADOWS FACC, ALI FACP CCDS Ot R06.02 SHORTNESS OF BREATH 02/08/2016 GAGAN MEADOWS FACC, ALI FACP CCDS Ot Z72.0 TOBACCO USE 02/22/2016 GAGAN MEADWOS FACC, ALI FACP CCDS Ot E11.9 TYPE 2 DIABETES MELLITUS WITHOUT COMPLIC 02/22/2016 GAGAN MEADOWS FACC, ALI FACP CCDS Ot E66.09 OTHER OBESITY DUE TO EXCESS CALORIES 02/22/2016 GAGAN MEADOWS FACC, ALI FACP CCDS Ot R06.02 SHORTNESS OF BREATH 02/22/2016 GAGAN MEADOWS FACC, ALI FACP CCDS Ot Z72.0 TOBACCO USE Procedures Code Description Performed By Performed On 96.04 INSERT ENDOTRACHEAL TUBE 07/21/2011 96.71 CONTINUOUS INVASIVE MECHANICAL VENTILATI 07/21/2011 Results Encounters ACCT No. Visit Date/Time Discharge Status Pt. Type Provider Facility Loc./Unit Complaint [id number] 04/03/2015 13:35:00 2015 13:56:00 DIS Outpatient YEN DURÁN DO [facility] REHAB BACK PAIN GOES DOWN LEGS [id number] 03/03/2015 14:16:00 2015 15:44:00 DIS Emergency [facility] ER COUGH/CHEST CONGESTION SOA [id number] 01/17/2015 15:47:00 2014 23:59:59 CLS Outpatient YEN DURÁN DO [facility] RAD LOW BACK PAIN [id number] 12/19/2014 10:24:00 2014 12:55:00 DIS Outpatient JENNY WILHELM MD [facility] HISTORY OF POLYPS [id number] 12/15/2014 05:39:00 2014 23:59:59 CLS Outpatient JENNY WILHELM MD [facility] PREOP HISTORY OF POLYPS [id number] 12/08/2014 05:47:00 2014 23:59:59 CLS Outpatient JENNY WILHELM MD [facility] PREOP HX POLYPS [id number] 11/17/2014 05:37:00 2014 23:59:59 CLS Outpatient JENNY WILHELM MD [facility] PREOP HX POLYPS [id number] 10/25/2014 07:25:00 2014 23:59:59 CLS Outpatient YEN DURÁN DO [facility] LAB DIABETES,COPD [id number] 10/13/2014 06:00:00 2014 23:59:59 CLS Outpatient JENNY WILHELM [facility] [facility] PREOP HISTORY OF POLYPS [id number] 09/29/2014 12:51:00 2014 16:09:00 DIS Outpatient YEN DURÁN DO [facility] REHAB GAIT INSTABILITY; ARTHRITIS [id number] 07/13/2014 13:30:00 2014 00:01:00 DIS Outpatient YEN DURÁN DO [facility] REHAB GAIT INSTABILITY; ARTHRITIS [id number] 05/24/2014 11:16:00 2014 23:59:59 CLS Outpatient YEN DURÁN DO [facility] LAB DIABETIES, [id number] 03/11/2014 15:37:00 2014 18:00:00 DIS Emergency PAM WEBB MD [facility] ER PSYCH EVAL [id number] 01/23/2014 14:37:00 2013 17:20:00 DIS Emergency CHAVEZ THOMPSON [facility] ER PSYCH EVAL [id number] 01/13/2014 15:17:00 2013 17:20:00 DIS Emergency ANN MATA MD [facility] ER PSYCH [id number] 01/12/2014 08:04:00 2013 23:59:59 CLS Outpatient AMY ROJAS DO [facility] RT COPD [id number] 01/12/2014 07:46:00 2013 23:59:59 CLS Outpatient YEN DURÁN DO [facility] LAB DIABETES,COPD [id number] 01/01/2014 18:37:00 2013 20:03:00 DIS Emergency CHAVEZ THOMPSON [facility] ER DENTAL PAIN [id number] 12/24/2013 09:04:00 2013 23:59:59 CLS Outpatient YEN DURÁN DO [facility] RAD BACK PAIN NOT BETTER [id number] 12/18/2013 12:54:00 2013 14:04:00 DIS Emergency SANTA FORTUNE APRN [facility] ER LOWER BACK PAIN [id number] 11/25/2013 18:54:00 2013 20:44:00 DIS Emergency GIOVANNI JUAREZ DO [facility] ER PSYCH [id number] 11/14/2013 12:30:00 2013 23:59:59 CLS Preadmit ANN MATA MD [facility] ER DENTAL PAIN [id number] 04/28/2013 15:26:00 2013 23:59:59 CLS Outpatient CRYSTAL RENO AMY Tex [facility] RAD COPD,DYSPNES RESP ABNORMALITY, MORIBID OBESITY [id number] 03/11/2013 05:32:00 2013 16:10:00 DIS Inpatient YEN DURÁN DO [facility] 4TH CELLULITIS/ABSCESS L AXILLA/ COPD EXACERBATION [id number] 01/22/2013 23:30:00 2012 13:20:00 DIS Inpatient YEN DURÁN DO [facility] SURGICAL INCARCERATED VENTRAL HERNIA;UNCONTROLLED DIABETES [id number] 11/08/2012 23:46:00 2012 02:40:00 DIS Emergency JON MEADOWS, PAM Cruz [facility] ER SOB,FEVER,HEAD PAIN,VOMITING, DIARRHEA [id number] 06/24/2012 09:16:00 2012 23:59:59 CLS Outpatient AISHA GRULLON MD [facility] RAD BACK PAIN [id number] 03/08/2016 14:00:00 PEN Preadmit GAGAN MEADOWS FACC , ALI ANAP CCDS [facility] CARD SOB,DIABETES MELLITUS TYPE II,TOBACCO USER [id number] 02/06/2016 12:22:00 ACT Outpatient GAGAN MEADOWS FACC, ALI FACP CCDS [facility] CARD SOB,DIABETES MELLITUS TYPE 11 [id number] 04/18/2014 19:23:00 Document Registration [id number] 01/05/2014 18:30:00 Document Registration [id number] 01/05/2014 18:30:00 Document Registration [id number] 01/05/2014 18:30:00 Document Registration [id number] 11/02/2013 09:34:00 Document Registration [id number] 06/08/2012 00:00:00 Document Registration [id number] 04/24/2012 03:55:00 Document Registration [id number] 04/20/2012 08:15:00 Document Registration [id number] 04/15/2012 07:41:00 Document Registration [id number] 03/30/2012 08:07:00 Document Registration [id number] 01/29/2012 08:29:00 Document Registration [id number] 11/14/2011 11:58:00 Document Registration [id number] 11/06/2011 05:48:00 Document Registration [id number] 09/16/2011 11:07:00 Document Registration [id number] 09/12/2011 13:59:00 Document Registration [id number] 09/06/2011 11:08:00 Document Registration [id number] 08/31/2011 10:30:00 Document Registration [id number] 07/19/2011 19:07:00 Document Registration [id number] 06/28/2011 15:49:00 Document Registration [id number] 06/06/2011 11:11:00 Document Registration
--- NOTE | 2016-03-29 07:45 | ECHOCARDIOGRAPHY REPORT ---
PROCEDURE PHYSICIAN: ALBERTO ALEMAN DATE OF PROCEDURE: 03/28/2016 TWO DIMENSIONAL ECHOCARDIOGRAM REPORT PRIMARY PHYSICIAN: Dr. Farias OTHER PHYSICIAN: REFERRING PHYSICIAN: ORDERING PHYSICIAN: Dr. Aleman INDICATION FOR THE PROCEDURE: Shortness of breath. MEASUREMENTS DERIVED VALUES LV DIAMETER (LAX) NORMALS NORMALS Diastolic 5.5 (3.6-5.2) Eject. Fract. (60%+/-6%) Systolic (2.3-3.9) Diastolic Vol. % Shortening (0.22-0.42) Systolic Vol. Aortic Root 3. IVS THICKNESS Diastolic 1.1 (0.6-1.1) LVPW THICKNESS Diastolic 1.1 (0.6-1.1) LA DIAMETER Systolic 3.7 (2.1-3.7) DESCRIPTION: This is a technically difficult study and not ideal for wall motion analysis. On the views available, global left ventricular systolic function is normal. Left ventricular ejection fraction is approximately 60%. Aortic, mitral and tricuspid valve leaflets show good leaflet excursion. There is no significant pericardial effusion. Doppler imaging shows trivial tricuspid regurgitation. There is no Doppler evidence of significant valvular stenosis. Pulmonary artery systolic pressure is estimated to be approximately 30 to 35 mmHg. There is no evidence of any significant intracardiac shunt on this transthoracic echocardiographic study. CONCLUSION: 1. Normal global left ventricular systolic function with an ejection fraction of approximately 60%. 2. Trivial tricuspid regurgitation. 3. No evidence of significant valvular stenosis. 4. Pulmonary artery systolic pressure is estimated to be 25 to 30 mmHg. Job ID: [id number] Dictated Date: 03/28/2016 11:36:00 Road Production General Manager Date: 03/29/2016 07:38:50 / melania
== END ==
LOC: CARD 09:37
PROVIDERS: ATTEND Internal Medicine Cardiovascular Disease
DX: E11.9 Type 2 diabetes mellitus without complications (principal); Z72.0 Tobacco use; R06.02 Shortness of breath; E66.09 Other obesity due to excess calories
CPT/HCPCS: 93306

== ENCOUNTER 2016-06-18 09:46 | Day surgery (SDC) | payer MEDICAID ==
[2016-06-18] VITALS (9 sets, daily range): BP systolic 116–126; BP diastolic 70–85
[~2016-06-18] VITALS: Ht 170.2 cm; Wt 123.1 kg
[~2016-06-18 09:46] MED LIST changes: -ASPI-999 PO; -ATOR10TA66 PO; -BENA10TA2 PO; -CANA300T PO; -HALO5TAB PO; -TRAZ150T72 PO
[2016-06-18] MEDS ORDERED: HEParin (CATH LAB) 2,000 ML IV ONE (09:57)
[2016-06-18] MEDS ORDERED: LIDOCAINE 1% INJ 20 ML (XYLOCAINE) VIAL ONE (09:57)
[2016-06-18] MEDS ORDERED: NS IV 1000 ML 1,000 ML ONE (09:57)
[2016-06-18] MEDS ORDERED: NS IV 1000 ML 1,000 ML IV SCH ×2 (10:15→16:03)
[2016-06-18 10:21] LABS: MEAN PLATELET VOLUME 9.4 FL (7.4-10.4); RED BLOOD COUNT 5.81 10^6/uL (4.35-5.85); RED CELL DISTRIBUTION WIDTH 14.4 % (10.0-14.5); WHITE BLOOD COUNT 13.9 10^3/uL (4.3-11.0)
[2016-06-18 10:26] LABS: INR 0.9 (0.8-1.4); PROTHROMBIN TIME PATIENT 12.3 SEC (12.2-14.7)
[2016-06-18 10:35] LABS: ALANINE AMINOTRANSFERASE 10 U/L (0-55); ALBUMIN 3.6 G/DL (3.2-4.5); ANION GAP 9 MMOL/L (5-14); ASPARTATE AMINO TRANSFERASE 12 U/L (5-34); BILIRUBIN,TOTAL 0.3 MG/DL (0.1-1.0); BLOOD UREA NITROGEN 2 MG/DL (7-18); BUN/CREATININE RATIO 3; CALCIUM 9.3 MG/DL (8.5-10.1); CARBON DIOXIDE 29 MMOL/L (21-32); CHLORIDE 93 MMOL/L (98-107); CHOLESTEROL 76 MG/DL (< 200); CREATININE SERUM 0.64 MG/DL (0.60-1.30); DIRECT LDL 15 MG/DL (1-129); GFR ESTIMATED > 60; GLUCOSE 117 MG/DL (70-105); POTASSIUM 4.5 MMOL/L (3.6-5.0); SODIUM 131 MMOL/L (135-145); TOTAL PROTEIN 7.2 G/DL (6.4-8.2); TRIGLYCERIDES 86 MG/DL (<150); VLDL CHOLESTEROL 17 MG/DL (5-40)
[2016-06-18] MEDS ORDERED: TRAZ150T72 PO (10:56)
[2016-06-18] MEDS ORDERED: ATOR10TA66 PO (10:56)
[2016-06-18] MEDS ORDERED: BENZ0.5T3 PO (10:56)
[2016-06-18] MEDS ORDERED: CANA300T PO (10:56)
[2016-06-18] MEDS ORDERED: BENA10TA2 PO (10:56)
[2016-06-18] MEDS ORDERED: HALO5TAB PO (10:56)
[2016-06-18] MEDS ORDERED: HYDR50TA76 PO (11:00)
[2016-06-18] MEDS ORDERED: fentaNYL INJECTION 100 MCG/2 ML AMP ONE ×2 (13:39→15:02)
[2016-06-18] MEDS ORDERED: MIDAZOLAM 5 MG/5 ML (VERSED) VIAL ONE ×2 (13:40→15:02)
[2016-06-18] MEDS ORDERED: diphenhydrAMINE 50 MG/ML INJ (BENADRYL) ONE ×2 (13:40→15:02)
--- NOTE | 2016-06-18 15:31 | Cardiac Procedure Note-CS/ASA ---
Pre-Procedure Note Pre-Op Procedure Note H&P Reviewed The H&P was reviewed, patient examined and no changes noted. Date H&P Reviewed: June 18, 2016 Time H&P Reviewed: 15:31 Conscious Sedation Pre-Proced Time Reviewed: 15:31 ASA Class: 3 Airway Mallampati Classification: ([place] appropriate class) I. II. III, IV Lungs Heart ASA score ASA 1: a normal healthy patient ASA 2: a patient with a mild systemic disease (mid diabetes, controlled hypertension, obesity ASA 3: a patient with a severe systemic disease that limits activity (angina , COPD, prior Myocardial infarction) ASA 4: a patient with an incapacitating disease that is a constant threat to life (CHF, renal failure) ASA 5: a moribund patient not expected to survive 24 hrs. (ruptured aneurysm) ASA 6: a declared brain patient whose organs are being harvested. For emergent operations, add the letter E after the classification Grade 2 Sedation Plan: Analgesia, Amnesia, Plan communicated to team members, Discussed options with patient/fam, Discussed risks with patient/fam Note The patient is an appropriate candidate to undergo the planned procedure, sedation, and anesthesia. The patient immediately re-assessed prior to indication. ALBERTO FARAH MD FACP FAC CCDS June 18, 2016 15:31
[2016-06-18] MEDS ORDERED: ASPI-999 PO (16:06)
--- NOTE | 2016-06-18 16:07 | Discharge Inst-Cardiology ---
Discharge Inst-Cardiac Discharge Medications New Medications: Aspirin (Aspirin) 81 Mg Tab.chew 81 MG PO DAILY, #90 TAB 3 Refills Continued Medications: Amlodipine Besylate (Norvasc Tablet) 10 Mg Tablet 10 MG PO DAILY Atorvastatin Calcium (Atorvastatin Calcium) 10 Mg Tablet 10 MG PO HS, TAB Benazepril HCl (Benazepril HCl) 10 Mg Tablet 10 MG PO DAILY, TAB Benztropine Mesylate (Benztropine Mesylate) 0.5 Mg Tablet 1 MG PO BID, TAB TAKES 2 (0.5 MG) TABLETS Benztropine Mesylate (Benztropine Mesylate) 0.5 Mg Tablet 0.5 MG PO DAILY@1200, TAB Canagliflozin (Invokana) 300 Mg Tablet 300 MG PO DAILY, TAB Dexlansoprazole (Dexilant) 60 Mg Cap.dr.mp 60 MG PO DAILY Duloxetine Hcl (Cymbalta) 60 Mg Capsule.dr 60 MG PO DAILY Ferrous Sulfate (Iron) 325 ( 65 )Mg Capsule.sa 325 MG PO DAILY Gabapentin (Neurontin) 300 Mg Cap 600 MG PO HS, CAP TAKES 2 (300 MG) CAPSULES Haloperidol (Haldol Tab) 5 Mg Tab 10 MG PO BID, TAB TAKES 2 (5 MG) TABLETS Haloperidol (Haloperidol) 5 Mg Tablet 5 MG PO HS, TAB Hydroxyzine HCl (Hydroxyzine HCl) 50 Mg Tablet 50 MG PO TID, TAB Insulin Regular Human Rec (Humulin R) 100 U/Ml Vial SQ QID WITH EACH MEAL AND AT BEDTIME PER SLIDING SCALE <150-no insulin 151-200-2 units 201-250-4 units 251-300-6 units 301-350-8 units 351-390-10 units Metformin Hcl (Metformin 500 Mg) 500 Mg Tablet 500 MG PO BID Metoprolol Succinate (Toprol Xl) 25 Mg Tab.sr.24h 25 MG PO DAILY Potassium Chloride (Klor-Con M20) 20 Meq Tab.prt.sr 20 MEQ PO BID Roflumilast (Daliresp) 500 Mcg Tablet 500 MCG PO DAILY Sucralfate (Carafate) 1 Gm Tab 1 GM PO ACHS PRN for STOMACH UPSET Trazodone HCl (Trazodone HCl) 150 Mg Tablet 150 MG PO HS, TAB Discontinued Medications: Insulin Glargine,Hum.rec.anlog (Lantus) 300 Units/3 Ml Soln 60 UNITS SQ HS Patient Instructions Patient Instructions: Hold METFORMIN until the morning of 06/21/16, then resume previous home dose Activity & Diet Discharge Diet: ADA Diet (1800 kCal ADA) ALBERTO FARAH MD FACP FAC CCDS June 18, 2016 16:07
--- NOTE | 2016-06-18 16:08 | Discharge Inst-Post CATH ---
Discharge Inst-CATH Post Cardiac Cath D/C Inst Follow Up/Plan F/u with Dr Aleman in 1-2 weeks CARDIAC CATH DISCHARGE INSTRUCTIONS *Hold Metformin until the morning of 06/21/16. ACTIVITY * Go Home directly and rest. * Limit activity of the leg (or wrist if it was used) for 7 days including aerobics, swimming, jogging, bicycling, etc. * Restrict stair-climbing for 7 days if possible, if not, climb up with your non -cath leg, then bring together on the same step. * Avoid lifting, pushing, pulling or excessive movement of the affected extremity for 7 days. * Customary sexual activity may be resumed after 2 days-use caution not to use a position that strains or causes pain to the affected extremity. * No driving for 24 hours. * NO SMOKING. * Avoid straining for bowel movements for 7 days. * Gentle walking on level ground is allowed. * Returning to work will depend on the type of procedure and the results. Your doctor will discuss this with you. CALL YOUR DOCTOR FOR ANY OF THE FOLLOWING: *If bleeding from the puncture site occurs- Apply gentle pressure to site with clean cloth and call your doctor or EMS. * If a knot or lump forms under the skin, increases in size, or causes pain. * If bruising appears to be worsening or moving further down your leg instead of disappearing. * Temperature above 101 F. CARE OF YOUR GROIN INCISION; * Bruising or purple discoloration of the skin near the puncture site is common. * You may shower only, no bathtub bathing for 5 days. Be careful to avoid slipping as your leg may feel stiff. * If a closure device was used on your femoral artery, please see the attached guide regarding care of the device and your leg. * REMOVE the dressing from your groin the next day after your procedure in the shower. CARE OF YOUR WRIST INCISION; * Bruising or purple discoloration of the skin near the puncture site is common. * You may shower. * DO NOT submerge wrist. * Remove dressing in 24 hours. ALBERTO ALEMAN MD [facility] CCDS June 18, 2016 16:08
--- NOTE | 2016-06-18 16:11 | CARDIAC CATHETERIZATION ---
DATE OF SERVICE: 06/18/2016 PROCEDURE: Cardiac catheterization. The patient is a 55-year-old man with coronary artery disease risk factors who has exertional shortness of breath and whose myocardial perfusion imaging recently indicated evidence of myocardial ischemia (anterolateral). Cardiac catheterization is carried out today after having obtained informed consent. DESCRIPTION OF PROCEDURE: The patient was brought to the cardiac catheterization in the fasting state. The right groin was prepared and draped in the usual sterile fashion with 1% lidocaine with local anesthesia. Modified Seldinger technique was used to advance the 5-Haitian sheath into the right femoral artery. A 5-Haitian JL3.5 catheter was used for left coronary angiography and 5-Haitian JR4 catheter was used for right coronary angiography. A 5-Haitian pigtail catheter was used for left heart catheterization and left ventricular angiography. A 5-Haitian pigtail catheter was used for angiography of the aortic root after the catheter had been pulled back to the aortic root from the left ventricle. The catheter was removed. Angiography of the right femoral artery had been carried out through the sheath at the beginning of the procedure. At the end of the procedure, Mynx was used to achieve hemostasis. He tolerated the procedure well HEMODYNAMICS: Left ventricular end-diastolic pressure following coronary angiography was 10 mmHg. There was no significant pressure gradient on pullback across the aortic valve. The ascending aortic pressure was 91/51 with a mean of 68 mmHg. LEFT VENTRICULAR ANGIOGRAPHY: Left ventricular angiography was carried out in the right anterior oblique projection only. Global left ventricular systolic function was normal. No regional wall abnormality was seen. The left ventricular ejection fraction was 55% to 60%. CORONARY ANGIOGRAPHY: The left main coronary artery is free of significant disease. The left anterior descending artery has mild plaques and calcification. Left circumflex artery is dominant and has mild plaques. The right coronary artery is nondominant and has 40% mid vessel stenosis. AORTIC ROOT ANGIOGRAPHY: Aortic root angiography did not indicate any significant thoracic aortic aneurysm or dissection, to the extent visualized. There is no significant aortic regurgitation. The aortic valve leaflets exhibit good leaflet excursion. Neck arteries, to the extent visualized, do not exhibit significant disease. There is mild aortic arch calcification. CONCLUSIONS: 1. Angiographically mild coronary artery disease. 2. Normal global left ventricular systolic function with ejection fraction of 55% to 60%. 3. Normal left ventricular end-diastolic pressure. DISCUSSION AND RECOMMENDATIONS: Based on results of the study, symptoms do not appear to be of cardiac origin. Myocardial perfusion imaging appears to have been a false positive study. Continue risk factor modifications advised. Outpatient followup is advised. Job ID: [id number] DocumentID: [id number] Dictated Date: 06/18/2016 15:49:35 Mail Sorter Date: 06/18/2016 16:11:02 Dictated By: ALBERTO FARAH MD, MA, FACP, FACC,
[2016-06-18] MEDS ORDERED: PATIENT MAY USE OWN MEDS, ALL PO SCH (16:15)
== END 2016-06-18 19:45 | disposition home or self-care (01) ==
LOC: CATH 09:46 → ICU 16:05 → ENPENDDIS 19:15 → CATH 19:45
PROVIDERS: ATTEND Nurse Practitioner Family
DX: R94.39 Abnormal result of other cardiovascular function study (principal); R06.02 Shortness of breath; I25.10 Atherosclerotic heart disease of native coronary artery without angina pectoris; J44.9 Chronic obstructive pulmonary disease, unspecified; E11.9 Type 2 diabetes mellitus without complications; E66.01 Morbid (severe) obesity due to excess calories; Z72.0 Tobacco use; Z68.41 Body mass index [BMI] 40.0-44.9, adult; Z79.899 Other long term (current) drug therapy; Z79.4 Long term (current) use of insulin
CPT/HCPCS: 36415; 80053; 80061; 82962; 85027; 85610; 85730; 87081; 93005; 93458; 93567

== ENCOUNTER 2016-08-17 23:34 | Inpatient (IN) | payer MEDICAID ==
[~2016-08-17] VITALS: Ht 165.1 cm; Wt 136.1 kg
[~2016-08-17 23:34] MED LIST changes: +ASPI-999 PO; +ATOR10TA66 PO; +BENA10TA2 PO; +CANA300T PO; +HALO5TAB PO; +TRAZ150T72 PO
[2016-08-17] MEDS ORDERED: RT-ALBUTEROL/IPRATROPIUM 3 ML (DUONEB) VIAL ONE (23:40)
[2016-08-17] MEDS ORDERED: methylPREDNISolone 125 MG (Solu-MEDROL) VIAL IV STA (23:44)
[2016-08-17] MEDS ORDERED: RT-ALBUTEROL SULF 2.5 MG/3 ML PRE-MIX VIAL INH STA ×2 (23:46→23:51)
[2016-08-18] VITALS (24 sets, daily range): BP systolic 96–139; BP diastolic 66–83
[2016-08-18] LABS: ABG HCO3 25 MMOL/L (23-27); ABG OXYGEN SATURATION 96 % (94-100); ABG PCO2 45 MMHG (35-45); ABG PH 7.36 (7.37-7.43); ABG PO2 76 MMHG (79-93); ABG TCO2 26.6 MMOL/L (21.0-31.0)
[2016-08-18] MEDS ORDERED: RT-ALBUTEROL/IPRATROPIUM 3 ML (DUONEB) VIAL INH ONE
[2016-08-18 00:03] LABS: BASOPHILS # (AUTO) 0.1 10^3/uL (0.0-0.1); BASOPHILS % (AUTO) 0 % (0-10); EOSINOPHILS # (AUTO) 0.2 10^3/uL (0.0-0.3); EOSINOPHILS % (AUTO) 1 % (0-10); LYMPHOCYTES # (AUTO) 2.4 X 10^3 (1.0-4.0); LYMPHOCYTES % (AUTO) 9 % (12-44); MEAN CORPUSCULAR HEMOGLOBIN 28 PG (25-34); MEAN CORPUSCULAR HGB CONC 34 G/DL (32-36); MEAN CORPUSCULAR VOLUME 84 FL (80-99); MEAN PLATELET VOLUME 9.9 FL (7.4-10.4); MONOCYTES # (AUTO) 1.7 X 10^3 (0.0-1.0); MONOCYTES % (AUTO) 7 % (0-12); NEUTROPHILS # (AUTO) 21.6 X 10^3 (1.8-7.8); NEUTROPHILS % (AUTO) 83 % (42-75); PLATELET COUNT 259 10^3/uL (130-400); RED BLOOD COUNT 5.15 10^6/uL (4.35-5.85); RED CELL DISTRIBUTION WIDTH 14.3 % (10.0-14.5); WHITE BLOOD COUNT 25.9 10^3/uL (4.3-11.0)
--- NOTE | 2016-08-18 00:07 | ED General ---
General Chief Complaint: Respiratory Problems Stated Complaint: SOA Nursing Triage Note: PT TO ED 8 PER W/C W/ C/O SOB ONSET TODAY. PT REPORTS IS SUPPOSED TO BE ON O2 ALL THE TIME BUT STATES HE CANNOT AFFORD IT SO USES IT ONLY WHEN NECESSARY. Nursing Sepsis Screen: No Definite Risk Source of Information: Patient Exam Limitations: No Limitations History of Present Illness Time Seen by Provider: 23:38 Initial Comments Here with report of significant shortness of breath that started today. He is supposed to be on oxygen all the time at 2 L but states that he has to use it sparingly because he cannot afford to buy it. He typically uses it only at night or when necessary. This evening he became significantly dyspneic and presented to the emergency department. Denies fevers, vomiting or chest pain. Does admit to significant shortness of breath. He did quit smoking 2 days ago. He has not used his oxygen today. Initial O2 sat on arrival was 26 percent with good waveform. Patient having difficulty with speaking due to severe shortness of breath. Timing/Duration: 12 Hours Severity: Severe Associated Systoms: No Chest Pain, Cough, No Fever/Chills, No Nausea/Vomiting, Shortness of Air, Weakness Allergies and Home Medications Allergies Coded Allergies: NKANo Known Allergies (Verified Allergy, Unknown, 03/11/13) Home Medications Amlodipine Besylate 10 Mg Tablet, 10 MG PO DAILY, (Reported) Aspirin 81 Mg Tab.chew, 81 MG PO DAILY, #90 Ref 3 Prescribed by: ALBERTO FARAH on 06/18/16 1606 Atorvastatin Calcium 10 Mg Tablet, 10 MG PO HS, (Reported) Benazepril HCl 10 Mg Tablet, 10 MG PO DAILY, (Reported) Benztropine Mesylate 0.5 Mg Tablet, 1 MG PO BID, (Reported) TAKES 2 (0.5 MG) TABLETS Benztropine Mesylate 0.5 Mg Tablet, 0.5 MG PO DAILY@1200, (Reported) Canagliflozin 300 Mg Tablet, 300 MG PO DAILY, (Reported) Dexlansoprazole 60 Mg Cap.mp, 60 MG PO DAILY, (Reported) Duloxetine Hcl 60 Mg Capsule.dr, 60 MG PO DAILY, (Reported) Ferrous Sulfate 325 ( 65 )Mg Capsule.sa, 325 MG PO DAILY, (Reported) Gabapentin 300 Mg Cap, 600 MG PO HS, (Reported) TAKES 2 (300 MG) CAPSULES Haloperidol 5 Mg Tab, 10 MG PO BID, (Reported) TAKES 2 (5 MG) TABLETS Haloperidol 5 Mg Tablet, 5 MG PO HS, (Reported) Hydroxyzine HCl 50 Mg Tablet, 50 MG PO TID, (Reported) Insulin Regular Human Rec 100 U/Ml Vial, SQ QID, (Reported) WITH EACH MEAL AND AT BEDTIME PER SLIDING SCALE <150-no insulin 151-200-2 units 201-250-4 units 251-300-6 units 301-350-8 units 351-390-10 units Metformin Hcl 500 Mg Tablet, 500 MG PO BID, (Reported) Metoprolol Succinate 25 Mg Tab.sr.24h, 25 MG PO DAILY, (Reported) Potassium Chloride 20 Meq Tab.prt.sr, 20 MEQ PO BID, (Reported) Roflumilast 500 Mcg Tablet, 500 MCG PO DAILY, (Reported) Sucralfate 1 Gm Tab, 1 GM PO ACHS PRN for STOMACH UPSET, (Reported) Trazodone HCl 150 Mg Tablet, 150 MG PO HS, (Reported) Constitutional: see HPI, No chills, No fever EENTM: no symptoms reported Respiratory: dyspnea on exertion, short of breath, wheezing Cardiovascular: No chest pain, No edema Gastrointestinal: no symptoms reported Genitourinary: no symptoms reported Musculoskeletal: no symptoms reported Skin: no symptoms reported All Other Systems Reviewed Negative Unless Noted: Yes Past Czntcfr-Qrakgq-Dypuur Hx Patient Social History Type Used: Cigarettes Recent Foreign Travel: No Contact w/Someone Who Travel: No Recent Infectious Disease Expo: No Immunizations Up To Date Tetanus Booster (TDap): Unknown Date of Pneumonia Vaccine: Sep 18, 2011 Date of Influenza Vaccine: Nov 17, 2013 Seasonal Allergies Seasonal Allergies: No Surgeries HX Surgeries: Yes Surgeries: Tracheostomy Respiratory Hx Respiratory Disorders: Yes Respiratory Disorders: COPD Cardiovascular Hx Cardiac Disorders: Yes Neurological Hx Neurological Disorders: No Reproductive System Hx Reproductive Disorders: No Sexually Transmitted Disease: No HIV/AIDS: No Genitourinary Hx Genitourinary Disorders: No Gastrointestinal Hx Gastrointestinal Disorders: Yes (HX COLON POLYPS) Gastrointestinal Disorders: Ulcer Musculoskeletal Hx Musculoskeletal Disorders: No Musculoskeletal Disorders: Arthritis Endocrine Hx Endocrine Disorders: Yes Endocrine Disorders: Diabetes, Insulin dep HEENT HX ENT Disorders: No Cancer Hx Cancer: No Psychosocial Hx Psychiatric Problems: Yes Behavioral Health Disorders: Anxiety, Schizophrenia, Depression Integumentary HX Skin/Integumentary Disorder: No Blood Transfusions Hx Blood Disorders: No Reviewed Nursing Assessment Reviewed/Agree w Nursing PMH: Yes Family Medical History Family Medial History: Cancer 03 MOTHER, Onset:Unknown 09 BROTHER, Onset:Unknown Cataract 03 MOTHER, Onset:Unknown Family history: Asthma 03 FATHER, Onset:Unknown Family history: Breast disease 03 MOTHER, Onset:Unknown Family history: Diabetes mellitus 03 MOTHER, Onset:Unknown 09 BROTHER, Onset:Unknown Physical Exam-Suspected Sepsis Physical Exam Vital Signs Vital Sign - Last 12Hours 08/17/16 23:34 Temp 96.0 Pulse 136 Resp 32 B/P (MAP) 151/83 Pulse Ox 26 O2 Delivery Room Air O2 Flow Rate 15.00 Capillary Refill : Greater Than 3 Seconds Blood Pressure Mean: 105 General Appearance: WD/WN, Obese, Severe Distress HEENT: PERRL/EOMI, Pharynx Normal Neck: Non Tender, Supple Respiratory: Accessory Muscle Use, Decreased Breath Sounds, Expiration, Respiratory Distress, Wheezing Cardiovascular: No Murmur, Tachycardia Gastrointestinal: Normal Bowel Sounds, Non Tender, Soft Back: Normal Inspection, No CVA Tenderness, No Vertebral Tenderness Extremity: Normal Range of Motion, Non Tender, No Calf Tenderness Neurologic/Psychiatric: Alert, Oriented x3 Skin: warm/dry, pallor, No ulcerations Focused Exam Lactic Acid Level Laboratory Tests Test 08/17/16 23:39 08/18/16 02:13 Lactic Acid Level 5.91 MMOL/L (0.50-2.00) *H Progress/Results/Core Measures Suspected Sepsis Recent Fever Within 48 Hours: No Infection Criteria Present: None New/Unexplained Altered Menta: No Sepsis Screen: No Definite Risk Sepsis Diagnosis: SIRS Temperature:96.0 Pulse: 136 Respiratory Rate: 32 Laboratory Tests 08/17/16 23:39: White Blood Count 25.9H Blood Pressure 151 /83 Mean: 105 Laboratory Tests 08/17/16 23:39: Creatinine 0.82, INR Comment 1.0, Platelet Count 259, Total Bilirubin 0.6 Results/Orders Lab Results Laboratory Tests Test 08/17/16 01:11 08/17/16 23:39 08/17/16 23:52 08/18/16 02:13 Range/Units Urine Color YELLOW Urine Clarity CLEAR Urine pH 6.5 5-9 Urine Specific [place] 1.005 L 1.016-1.022 Urine Protein 1+ H NEGATIVE Urine Glucose (UA) 4+ H NEGATIVE Urine Ketones NEGATIVE NEGATIVE Urine Nitrite NEGATIVE NEGATIVE Urine Bilirubin NEGATIVE NEGATIVE Urine Urobilinogen NORMAL NORMAL MG/DL Urine Leukocyte Esterase NEGATIVE NEGATIVE Urine RBC (Auto) NEGATIVE NEGATIVE Urine RBC NONE /HPF Urine WBC NONE /HPF Urine Squamous Epithelial Cells 0-2 /HPF Urine Crystals NONE /LPF Urine Bacteria NEGATIVE /HPF Urine Casts NONE /LPF Urine Mucus NEGATIVE /LPF Urine Culture Indicated NO White Blood Count 25.9 H 4.3-11.0 10^3/uL Red Blood Count 5.15 4.35-5.85 10^6/uL Hemoglobin 14.4 13.3-17.7 G/DL Hematocrit 43 40-54 % Mean Corpuscular Volume 84 80-99 FL Mean Corpuscular Hemoglobin 28 25-34 PG Mean Corpuscular Hemoglobin Concent 34 32-36 G/DL Red Cell Distribution Width 14.3 10.0-14.5 % Platelet Count 259 130-400 10^3/uL Mean Platelet Volume 9.9 7.4-10.4 FL Neutrophils (%) (Auto) 83 H 42-75 % Lymphocytes (%) (Auto) 9 L 12-44 % Monocytes (%) (Auto) 7 0-12 % Eosinophils (%) (Auto) 1 0-10 % Basophils (%) (Auto) 0 0-10 % Neutrophils # (Auto) 21.6 H 1.8-7.8 X 10^3 Lymphocytes # (Auto) 2.4 1.0-4.0 X 10^3 Monocytes # (Auto) 1.7 H 0.0-1.0 X 10^3 Eosinophils # (Auto) 0.2 0.0-0.3 10^3/uL Basophils # (Auto) 0.1 0.0-0.1 10^3/uL Neutrophils % (Manual) 78 % Lymphocytes % (Manual) 11 % Monocytes % (Manual) 6 % Eosinophils % (Manual) 3 % Band Neutrophils 2 % Blood Morphology Comment NORMAL Prothrombin Time 13.3 12.2-14.7 SEC INR Comment 1.0 0.8-1.4 Activated Partial Thromboplast Time 31 24-35 SEC Sodium Level 127 L 135-145 MMOL/L Potassium Level 3.6 3.6-5.0 MMOL/L Chloride Level 89 L 98-107 MMOL/L Carbon Dioxide Level 22 21-32 MMOL/L Anion Gap 16 H 5-14 MMOL/L Blood Urea Nitrogen 5 L 7-18 MG/DL Creatinine 0.82 0.60-1.30 MG/DL Estimat Glomerular Filtration Rate > 60 BUN/Creatinine Ratio 6 Glucose Level 378 H 70-105 MG/DL Lactic Acid Level 5.91 *H 0.50-2.00 MMOL/L Calcium Level 9.9 8.5-10.1 MG/DL Magnesium Level 1.6 L 1.8-2.4 MG/DL Total Bilirubin 0.6 0.1-1.0 MG/DL Aspartate Amino Transf (AST/SGOT) 13 5-34 U/L Alanine Aminotransferase (ALT/SGPT) 12 0-55 U/L Alkaline Phosphatase 130 40-136 U/L Troponin I < 0.30 <0.30 NG/ML B-Type Natriuretic Peptide 68.0 <100.0 PG/ML Total Protein 7.5 6.4-8.2 GM/DL Albumin 3.3 3.2-4.5 GM/DL Blood Gas Puncture Site RIGHT RADIAL Blood Gas Patient Temperature 96.0 Arterial Blood pH 7.36 L 7.37-7.43 Arterial Blood Partial Pressure CO2 45 35-45 MMHG Arterial Blood Partial Pressure O2 76 L 79-93 MMHG Arterial Blood HCO3 25 23-27 MMOL/L Arterial Blood Total CO2 26.6 21.0-31.0 MMOL/L Arterial Blood Oxygen Saturation 96 94-100 % Arterial Blood Base Excess 0.0 -2.5-2.5 MMOL/L [place] Test YES-POS Blood Gas Ventilator Setting NO Blood Gas Inspired Oxygen 15L My Orders Orders - ANN MATA MD Cbc With Automated Diff (08/17/16 23:44) Comprehensive Metabolic Panel (08/17/16 23:44) Lactic Acid Analyzer (08/17/16 23:44) Blood Culture (08/17/16 23:44) Sputum Culture (08/17/16 23:44) Ua Culture If Indicated (08/17/16 23:44) Protime With Inr (08/17/16 23:44) Partial Thromboplastin Time (08/17/16 23:44) Chest 1 View, Ap/Pa Only (08/17/16 23:44) O2 (08/17/16 23:44) Saline Lock/Iv-Start (08/17/16 23:44) Saline Lock/Iv-Start (08/17/16 23:44) Vital Signs Adult Sepsis Patie Q1HR (08/17/16 23:44) Remove Rings In Anticipation O (08/17/16 23:44) Arterial Blood Gas (08/17/16 23:44) Methylprednisolone Sod Succ (Solu-Medrol (08/17/16 23:44) Albuterol/Ipra Inhalation Soln (Duoneb I (08/17/16 23:40) Albuterol Pre-Mix Nebs (Rt) (Proventil P (08/17/16 23:46) Albuterol/Ipra Inhalation Soln (Duoneb I (08/18/16 00:00) Svn Sm Volume Nebulizer Rt-Rfs (08/17/16 23:46) Svn Sm Volume Nebulizer Rt-Rfs (08/17/16 23:46) Albuterol Pre-Mix Nebs (Rt) (Proventil P (08/17/16 23:51) Svn Sm Volume Nebulizer Rt-Rfs (08/17/16 23:51) Manual Differential (08/17/16 23:39) BNP (08/18/16 00:11) Magnesium (08/18/16 00:11) Troponin I (08/18/16 00:11) Piperacillin Sodium/Tazobactam (Zosyn Vi (08/18/16 01:30) Piperacillin Sodium/Tazobactam (Zosyn Vi (08/18/16 01:40) Ns (Ivpb) (Sodium Chloride 0.9% Ivpb Bag (08/18/16 01:41) Ns Iv 1000 Ml (Sodium Chloride 0.9%) (08/18/16 02:01) Medications Given in ED Current Medications Medications Dose Ordered Sig/Lisa Route Start Time Stop Time Status Last Admin Dose Admin Albuterol/ Ipratropium 3 ml ONCE ONCE INH 08/18/16 00:00 08/18/16 00:01 DC 08/17/16 23:50 3 ML Piperacillin Sod/ Tazobactam Sod 4.5 gm ONCE ONCE IV 08/18/16 01:30 08/18/16 01:31 DC 08/18/16 02:03 4.5 GM Sodium Chloride 100 ml @ STK-MED ONCE .ROUTE 08/18/16 01:41 08/18/16 01:47 DC 08/18/16 02:04 100 MLS/HR Sodium Chloride 1,000 ml @ 0 mls/hr Q0M ONCE IV 08/18/16 02:01 08/18/16 02:02 DC 08/18/16 02:08 1,000 MLS/HR Vital Signs/I&O Vital Sign - Last 12Hours 08/17/16 08/17/16 08/17/16 08/17/16 23:34 23:34 23:46 23:50 Temp 96.0 Pulse 136 126 Resp 32 36 B/P (MAP) 151/83 Pulse Ox 26 29 92 O2 Delivery Room Air Nonrebreather NIV Bilevel O2 Flow Rate 15.00 100.00 08/18/16 01:15 Pulse 120 Resp 36 Pulse Ox 97 O2 Flow Rate 90.00 Capillary Refill : Greater Than 3 Seconds Blood Pressure Mean: 105 Progress Note : Progress Note Seen and evaluated on arrival. Patient and acute respiratory distress. Initial O2 sat 26 percent with good waveform. O2 applied via high flow mask which slowly improved his oxygen saturation to the 70s to low 80s. Patient placed on BiPAP with doing have and albuterol therapy initiated. Patient at 16/ 8 on BiPAP with 100 percent flow and O2 sat 96 percent. IV 2, labs, EKG, blood cultures, lactic acid, chest x-ray and Claros catheter ordered. Solu- Medrol 125 mg IV ordered. Monitor patient. 0007: O2 sat has improved to 98 percent with heart rate of 125 on BiPAP with continuous one-hour treatment in progress. ABG has been ordered. Monitor patient. Patient remains improved on BiPAP. 0155: Discussed case with Dr. Almeida. We will admit the patient to the hospital inpatient status to the ICU. Zosyn 4.5 g IV initiated. This was due to concerns for pneumonia. Patient has markedly elevated lactic acid greater than 5. I believe the lactic acid is related to respiratory failure and lactic acidosis from hypoxia and not from septic shock. Patient has maintained normal blood pressure throughout. There are concerns related to high volume fluid resuscitation on this patient as this event appears to be related to hypoxia although there is some underlying pneumonia but not septic shock. I do not believe the patient would benefit from high volume fluid resuscitation and the volume overload would be detrimental in this case. I do not believe the patient has septic shock and both findings of leukocytosis and lactic acid are related to respiratory failure from lack of oxygen causing the hypoxia and acidosis. X-ray shows pulmonary vascular congestion which I believe is related to heart strain from oxygen demand requirements. Patient was given 1 L of normal saline and is improved overall with respect to ventilatory status on BiPAP. At this point we will continue with gentle hydration, antibiotics and oxygenation via BiPAP and will continue to improve lung function via Nebulizer treatments and IV steroids. Admit, inpatient status to ICU. Patient and family agree with plan. ECG Initial ECG Impression Date: Aug 18, 2016 Initial ECG Impression Time: 23:47 Initial ECG Rate: 129 Initial ECG Rhythm: S.Tach Initial ECG Comparisson: Changed Comment Sinus tachycardia with ventricular premature complex. Normal axis. No evidence of ST elevation RI. Change from previous in that rate is increased. Otherwise morphology similar. Interpreted by me. Diagnostic Imaging Diagonstic Imaging: Xray Plain Films/CT/US/NM/MRI: chest Comments Significant bilateral pulmonary congestion with question of infiltrate especially on left. Reviewed: Reviewed by Me Departure Communication Time/Spoke to Admitting Phy: 01:55 Impression Impression: Primary Impression: Respiratory failure with hypoxia Qualified Codes: J96.01 - Acute respiratory failure with hypoxia Additional Impression: Pneumonia Qualified Codes: J18.9 - Pneumonia, unspecified organism Disposition: ADMITTED INPATIENT Condition: Critical Decision to Admit Reason: Admit from ER (General) Decision to Admit/Date: Aug 18, 2016 Time/Decision to Admit Time: 01:55 Departure-Patient Inst. Referrals: YEN DURÁN DO (PCP/Family) Primary Care Physician ANN MATA MD Aug 18, 2016 00:07
[2016-08-18 00:11] LABS: ALLENS TEST YES-POS
[2016-08-18 00:16] LABS: PROTHROMBIN TIME PATIENT 13.3 SEC (12.2-14.7)
[2016-08-18 00:21] LABS: MAGNESIUM 1.6 MG/DL (1.8-2.4)
[2016-08-18 00:22] LABS: ALANINE AMINOTRANSFERASE 12 U/L (0-55); ALBUMIN 3.3 GM/DL (3.2-4.5); ANION GAP 16 MMOL/L (5-14); ASPARTATE AMINO TRANSFERASE 13 U/L (5-34); BILIRUBIN,TOTAL 0.6 MG/DL (0.1-1.0); BLOOD UREA NITROGEN 5 MG/DL (7-18); BUN/CREATININE RATIO 6; CALCIUM 9.9 MG/DL (8.5-10.1); CARBON DIOXIDE 22 MMOL/L (21-32); CHLORIDE 89 MMOL/L (98-107); CREATININE SERUM 0.82 MG/DL (0.60-1.30); GFR ESTIMATED > 60; GLUCOSE 378 MG/DL (70-105); POTASSIUM 3.6 MMOL/L (3.6-5.0); SODIUM 127 MMOL/L (135-145); TOTAL PROTEIN 7.5 GM/DL (6.4-8.2)
[2016-08-18 00:24] LABS: BAND NEUTROPHILS 2 %; EOSINOPHILS % (MANUAL) 3 %; LYMPHOCYTES % (MANUAL) 11 %; NEUTROPHILS % (MANUAL) 78 %
[2016-08-18 00:34] LABS: TROPONIN I < 0.30 NG/ML (<0.30)
[2016-08-18 01:17] LABS: BILIRUBIN,URINE NEGATIVE (NEGATIVE); KETONES,URINE NEGATIVE (NEGATIVE); LEUKOCYTE ESTERASE ,URINE NEGATIVE (NEGATIVE); NITRITE,URINE NEGATIVE (NEGATIVE); PH,URINE 6.5 (5-9); PROTEIN,URINE 1+ (NEGATIVE); UROBILINOGEN,URINE NORMAL (NORMAL)
[2016-08-18] MEDS ORDERED: PIPERACILLIN/TAZO 4.5 GM VIAL (ZOSYN) IV ONE ×2 (01:30→01:40)
[2016-08-18 01:32] LABS: SQUAMOUS EPITHELIAL CELL,UR 0-2 /HPF
[2016-08-18] MEDS ORDERED: NS (IVPB) 100 ML ONE (01:41)
[2016-08-18] MEDS ORDERED: NS IV 1000 ML 1,000 ML IV ONE (02:01)
[2016-08-18] MEDS ORDERED: NS IV 1000 ML 1,000 ML ONE (04:59)
[2016-08-18] MEDS: POTASSIUM CL 10MEQ/50ML IVPB 50 ML IV SCH (05:48)
[2016-08-18] MEDS: MAGNESIUM 1 GM/100 ML IVPB 100 ML IV SCH (05:48)
[2016-08-18] MEDS: KCL 20 MEQ TAB (K-DUR) PO SCH (05:48)
[2016-08-18 06:02] LABS: BASOPHILS % (AUTO) 0 % (0-10); EOSINOPHILS % (AUTO) 0 % (0-10); LYMPHOCYTES # (AUTO) 0.7 X 10^3 (1.0-4.0); LYMPHOCYTES % (AUTO) 2 % (12-44); MEAN CORPUSCULAR HEMOGLOBIN 28 PG (25-34); MEAN CORPUSCULAR HGB CONC 33 G/DL (32-36); MEAN CORPUSCULAR VOLUME 84 FL (80-99); MEAN PLATELET VOLUME 9.8 FL (7.4-10.4); MONOCYTES # (AUTO) 0.3 X 10^3 (0.0-1.0); MONOCYTES % (AUTO) 1 % (0-12); NEUTROPHILS # (AUTO) 28.3 X 10^3 (1.8-7.8); NEUTROPHILS % (AUTO) 97 % (42-75); PLATELET COUNT 240 10^3/uL (130-400); RED BLOOD COUNT 4.75 10^6/uL (4.35-5.85); RED CELL DISTRIBUTION WIDTH 14.1 % (10.0-14.5); WHITE BLOOD COUNT 29.3 10^3/uL (4.3-11.0)
[2016-08-18] MEDS: RT-ALBUTEROL/IPRATROPIUM 3 ML (DUONEB) VIAL INH SCH ×5 (06:08→22:43)
[2016-08-18 06:16] LABS: ALANINE AMINOTRANSFERASE 11 U/L (0-55); ANION GAP 11 MMOL/L (5-14); ASPARTATE AMINO TRANSFERASE 14 U/L (5-34); BILIRUBIN,TOTAL 0.7 MG/DL (0.1-1.0); BLOOD UREA NITROGEN 6 MG/DL (7-18); BUN/CREATININE RATIO 8; CALCIUM 9.4 MG/DL (8.5-10.1); CARBON DIOXIDE 23 MMOL/L (21-32); CHLORIDE 92 MMOL/L (98-107); CREATININE SERUM 0.75 MG/DL (0.60-1.30); GFR ESTIMATED > 60; GLUCOSE 397 MG/DL (70-105); POTASSIUM 4.8 MMOL/L (3.6-5.0); SODIUM 126 MMOL/L (135-145); TOTAL PROTEIN 6.8 GM/DL (6.4-8.2)
[2016-08-18] MEDS ORDERED: RT-ALBUTEROL SULF 2.5 MG/3 ML PRE-MIX VIAL IH PRN (07:30)
[2016-08-18] MEDS: LEVOFLOXACIN 750 MG/150 ML IV 150 ML IV SCH (07:46)
[2016-08-18] MEDS: PIPERACILLIN SODIUM/TAZOBACTAM 4.5 GM in NS (IVPB) 100 ML IV SCH ×3 (07:47→23:44)
[2016-08-18] MEDS ORDERED: methylPREDNISolone 125 MG (Solu-MEDROL) VIAL IVP SCH (08:00)
--- NOTE | 2016-08-18 08:56 | History & Physical ---
History of Present Illness History of Present Illness Reason for visit/HPI 55 yo male with history of COPD admitted for acute respiratory distress. He is suppose to be on 3L oxygen via nasal canula but reports he only uses sparingly due to cost. Pt reports he quit smoking cigarettes 08/15/16 because he didn't feel his normal self. Reports increased work of breathing, exertional dyspnea but denies any fevers, chills, nausea, vomiting, diarrhea. Denies chest pain. His oxygen saturation was 26% on presentation to ER. He was placed on oxygen and it improved -Pt was placed on Bipap with great improvement -oxygen saturation stayed in the 90s. Pt was started on zosyn, levoquin to cover for pseudomonas due to him having COPD. He also was given steroids for his COPD exacerbation. This AM patient reports he is feeling much better- not as short of breath- he reports the bipap is helping him breath. Pt is improving. Pt is septic but his elevated lactic acid is due to his hypoxia and not septic shock- Fluid hydration and respiratory support with bipap has improved his lactic acid to 2. Pt reports he is full code and in the event efforts are futile his brother and doctors will make his medical decisions. Date of Admission Aug 18, 2016 at 02:20 Time Seen by Provider: 07:30 I consulted on this patient on 08/18/16 0730 Attending Physician Shan Rao MD Admitting Physician Logan Farias DO Consult Allergies and Home Medications Allergies Coded Allergies: NKANo Known Allergies (Verified Allergy, Unknown, 03/11/13) Home Medications Amlodipine Besylate 10 Mg Tablet, 10 MG PO DAILY, (Reported) Aspirin 81 Mg Tab.chew, 81 MG PO DAILY, #90 Ref 3 Prescribed by: ALBERTO FARAH on 06/18/16 1606 Atorvastatin Calcium 10 Mg Tablet, 10 MG PO HS, (Reported) Benazepril HCl 10 Mg Tablet, 10 MG PO DAILY, (Reported) Benztropine Mesylate 0.5 Mg Tablet, 1 MG PO BID, (Reported) TAKES 2 (0.5 MG) TABLETS Benztropine Mesylate 0.5 Mg Tablet, 0.5 MG PO DAILY@1200, (Reported) Canagliflozin 300 Mg Tablet, 300 MG PO DAILY, (Reported) Dexlansoprazole 60 Mg Cap., 60 MG PO DAILY, (Reported) Duloxetine Hcl 60 Mg Capsule.dr, 60 MG PO DAILY, (Reported) Ferrous Sulfate 325 ( 65 )Mg Capsule.sa, 325 MG PO DAILY, (Reported) Gabapentin 300 Mg Cap, 600 MG PO HS, (Reported) TAKES 2 (300 MG) CAPSULES Haloperidol 5 Mg Tab, 10 MG PO BID, (Reported) TAKES 2 (5 MG) TABLETS Haloperidol 5 Mg Tablet, 5 MG PO HS, (Reported) Hydroxyzine HCl 50 Mg Tablet, 50 MG PO TID, (Reported) Insulin Regular Human Rec 100 U/Ml Vial, SQ QID, (Reported) WITH EACH MEAL AND AT BEDTIME PER SLIDING SCALE <150-no insulin 151-200-2 units 201-250-4 units 251-300-6 units 301-350-8 units 351-390-10 units Metformin Hcl 500 Mg Tablet, 500 MG PO BID, (Reported) Metoprolol Succinate 25 Mg Tab.sr.24h, 25 MG PO DAILY, (Reported) Potassium Chloride 20 Meq Tab.prt.sr, 20 MEQ PO BID, (Reported) Roflumilast 500 Mcg Tablet, 500 MCG PO DAILY, (Reported) Sucralfate 1 Gm Tab, 1 GM PO ACHS PRN for STOMACH UPSET, (Reported) Trazodone HCl 150 Mg Tablet, 150 MG PO HS, (Reported) Past Fmcumcj-Lnajli-Egqlry Hx Patient Social History Alcohol Use: Denies Use Recreational Drug Use: No Smoking Status: Former Smoker Type Used: Cigarettes Physical Abuse Screen: No Sexual Abuse: No Recent Foreign Travel: No Contact w/other who traveled: No Recent Hopitalizations: No Recent Infectious Disease Expo: No Immunizations Up To Date Tetanus Booster (TDap): Unknown Date of Pneumonia Vaccine: Sep 18, 2011 Date of Influenza Vaccine: Nov 17, 2013 Seasonal Allergies Seasonal Allergies: No Surgeries HX Surgeries: Yes Surgeries: Tracheostomy Respiratory Hx Respiratory Disorders: Yes Cardiovascular Hx Cardiovascular Disorders: Yes Neurological Hx Neurological Disorders: No Reproductive System Hx Reproductive Disorders: No Sexually Transmitted Disease: No HIV/AIDS: No Genitourinary Hx Genitourinary Disorders: No Gastrointestinal Hx Gastrointestinal Disorders: Yes (HX COLON POLYPS) Gastrointestinal Disorders: Ulcer Musculoskeletal Hx Musculoskeletal Disorders: No Musculoskeletal Disorders: Arthritis Endocrine Hx Endocrine Disorders: Yes Endocrine Disorders: Diabetes, Insulin dep HEENT HX ENT Disorders: No Cancer Hx Cancer: No Psychosocial Hx Psychiatric Problems: Yes Behavioral Health Disorders: Anxiety, Schizophrenia, Depression Integumentary HX Skin/Integumentary Disorder: No Blood Transfusions Hx Blood Disorders: No Reviewed Nursing Assessment Reviewed/Agree w Nursing PMH: Yes Family Medical History Family Hx: Cancer 03 MOTHER, Onset:Unknown 09 BROTHER, Onset:Unknown Cataract 03 MOTHER, Onset:Unknown Family history: Asthma 03 FATHER, Onset:Unknown Family history: Breast disease 03 MOTHER, Onset:Unknown Family history: Diabetes mellitus 03 MOTHER, Onset:Unknown 09 BROTHER, Onset:Unknown Review of Systems Review of Systems Date Seen by Provider: Aug 18, 2016 Time Seen by Provider: 07:30 General: No Chills, No Night Sweats HEENT: No Head Aches, No Visual Changes Pulmonary: Dyspnea, Cough Cardiovascular: Orthopnea, No: Chest Pain, Palpitations Gastrointestinal: No: Abdominal Pain, Nausea, Vomiting Genitourinary: No Dysuria, No Frequency Musculoskeletal: No: neck pain, shoulder pain Neurological: Weakness All Other Systems Reviewed All Other Systems Reviewed: Yes Physical Exam Vital Signs Vital Sign - Last 12Hours 08/17/16 08/18/16 23:34 05:50 Temp 96.0 Pulse 136 Resp 32 B/P (MAP) 151/83 Pulse Ox 26 O2 Delivery Room Air O2 Flow Rate 15.00 FiO2 80 Capillary Refill : Greater Than 3 Seconds General Appearance: Mild Distress (respiratory) HEENT: PERRL/EOMI Neck: Non Tender, Supple Respiratory: Chest Non Tender, Crackles (throughout -upper lung villarreal), Decreased Breath Sounds (bases), Rales, Wheezing (occassional) Cardiovascular: Regular Rate, Rhythm (a little tachy), No Edema, No Murmur Gastrointestinal: Normal Bowel Sounds, Non Tender, Soft Rectal: Deferred Back: No CVA Tenderness Extremity: Non Tender, No Calf Tenderness Neurologic/Psychiatric: Alert, Oriented x3, Normal Mood/Affect Skin: Normal Color, Warm/Dry Assessment/Plan Assessment/Plan Assessment/Plan 55 yo M *acute hypoxic respiratory distress- secondary to pneumonia and COPD exacerbation- BiPap 16/8 80% oxygen- RT consulted *COPD exacerbation- RT, methylprednisolone 60mg q8hr iv, SVN *Sepsis due to Pneumonia- levofloxacin, zosyn, IVF blood urine sputum cultures ordered *Lactic acidosis- due to hypoxia- improving continue IVF 100ml/hr NS *hyponatremia- IVF, rechecking- expect it to improve with hydration *DMII with hyperglycemia- worsened by steroids, insulin q6hr while in ICU *schizophrenia/anxiety/depression- will resume home meds. *h/o peptic ulcer disease- gi ppx while on steroids *CAD- mild, LVEF 55-60% 06/18/2016 Dispo: Pt is improving with BiPAP will try vapotherm today with RT. Lactic acidosis resolving with respiratory support- Sepsis improving with IVF, resp support and IV abx. NPO for meals while tachypneic and on BiPAP Problems: Clinical Quality Measures DVT/VTE Risk/Contraindication: Risk Factor Score Per Nursin RFS Level Per Nursing on Admit: 4+=Very High SHAN RAO MD Aug 18, 2016 08:56
--- NOTE | 2016-08-18 09:04 | Diagnostic Imaging Report ---
Portable chest compared to prior study from March 03, 2015. INDICATION: Respiratory distress. FINDINGS: Lung volumes are diminished. There is enlargement of the cardiac silhouette with marked abnormal prominence of the pulmonary vascularity suggesting congestive failure and edema. There is no pneumothorax. No large effusion is evident though this examination is limited by overlying soft tissues. IMPRESSION: New marked abnormal prominence of the pulmonary vascularity and interstitial markings suggests severe pulmonary edema. Dictated by: Dictated on workstation # [id number]
[2016-08-18] MEDS ORDERED: FUROSEMIDE 40 MG/4 ML INJ (LASIX) IVP NR (10:15)
[2016-08-18] MEDS ORDERED: morphine INJ 4 MG/ML 1 ML (VIAL/SYRINGE) IVP PRN (10:15)
[2016-08-18] MEDS: inSUlin (REGULAR) HUMAN 1 UNIT/0.01 ML (CHARGE PER UNIT) SC SCH ×3 (11:32→23:51)
[2016-08-18] MEDS ORDERED: LORA0.5T PO (15:16)
[2016-08-18] MEDS ORDERED: HYDR-3820 PO (15:16)
[2016-08-18] MEDS ORDERED: TIOT18CA2 IH (15:16)
[2016-08-18] MEDS ORDERED: INSU100V6 SQ (15:16)
[2016-08-18] MEDS ORDERED: ALBU1.25 IH (15:16)
[2016-08-18] MEDS ORDERED: BENZ2AMP2 PO (15:16)
[2016-08-18] MEDS ORDERED: BENZ0.5T3 PO (15:16)
[2016-08-18] MEDS ORDERED: FLUT1DIS26 IH (15:16)
[2016-08-18] MEDS: amLODIPine 10 MG (NORVASC) TAB PO SCH (16:25)
[2016-08-18] MEDS: SUCRALFATE 1 GM (CARAFATE) TAB PO SCH ×2 (16:25→21:05)
[2016-08-18] MEDS: methylPREDNISolone 125 MG (Solu-MEDROL) VIAL IVP SCH ×2 (16:25→23:44)
[2016-08-18] MEDS: BENZTROPINE MESYLATE 1 MG (COGENTIN) TAB PO SCH ×2 (16:40→21:06)
[2016-08-18] MEDS: DULoxetine 30 MG (CYMBALTA) CAP PO SCH (16:40)
[2016-08-18] MEDS: HALOPERIDOL 5 MG (HALDOL) TAB PO SCH ×2 (16:45→21:06)
[2016-08-18] MEDS: ROFLUMILAST 500 MCG TAB (DALIRESP) PO SCH (16:45)
[2016-08-18] MEDS: FAMOTIDINE 20MG/2ML IV (PEPCID) IVP SCH (21:05)
[2016-08-18] MEDS: inSUlin DETERMIR 1 UNIT/0.01 ML (LEVEMIR) CHARGE PER UNIT SQ SCH (21:06)
[2016-08-18] MEDS: GABAPENTIN 300 MG (NEURONTIN) CAP PO SCH (21:06)
[2016-08-19] VITALS (32 sets, daily range): BP systolic 92–144; BP diastolic 60–80
[2016-08-19] MEDS: RT-ALBUTEROL/IPRATROPIUM 3 ML (DUONEB) VIAL INH SCH ×6 (01:35→22:12)
[2016-08-19] MEDS: NS IV 1000 ML 1,000 ML IV SCH (03:18)
[2016-08-19 04:22] LABS: BASOPHILS % (AUTO) 0 % (0-10); EOSINOPHILS % (AUTO) 0 % (0-10); LYMPHOCYTES # (AUTO) 0.8 X 10^3 (1.0-4.0); LYMPHOCYTES % (AUTO) 4 % (12-44); MEAN CORPUSCULAR HEMOGLOBIN 28 PG (25-34); MEAN CORPUSCULAR HGB CONC 33 G/DL (32-36); MEAN CORPUSCULAR VOLUME 85 FL (80-99); MEAN PLATELET VOLUME 9.7 FL (7.4-10.4); MONOCYTES # (AUTO) 0.6 X 10^3 (0.0-1.0); MONOCYTES % (AUTO) 3 % (0-12); NEUTROPHILS # (AUTO) 21.1 X 10^3 (1.8-7.8); NEUTROPHILS % (AUTO) 94 % (42-75); PLATELET COUNT 244 10^3/uL (130-400); RED BLOOD COUNT 4.62 10^6/uL (4.35-5.85); RED CELL DISTRIBUTION WIDTH 14.2 % (10.0-14.5); WHITE BLOOD COUNT 22.5 10^3/uL (4.3-11.0)
[2016-08-19 04:39] LABS: ANION GAP 14 MMOL/L (5-14); BLOOD UREA NITROGEN 11 MG/DL (7-18); BUN/CREATININE RATIO 17; CALCIUM 9.2 MG/DL (8.5-10.1); CARBON DIOXIDE 25 MMOL/L (21-32); CHLORIDE 93 MMOL/L (98-107); CREATININE SERUM 0.65 MG/DL (0.60-1.30); GFR ESTIMATED > 60; GLUCOSE 253 MG/DL (70-105); MAGNESIUM 1.6 MG/DL (1.8-2.4); PHOSPHORUS 3.3 MG/DL (2.3-4.7); POTASSIUM 3.8 MMOL/L (3.6-5.0); SODIUM 132 MMOL/L (135-145)
[2016-08-19] MEDS: MAGNESIUM 1 GM/100 ML IVPB 100 ML IV SCH ×3 (04:45→05:57)
[2016-08-19] MEDS: POTASSIUM CL 10MEQ/50ML IVPB 50 ML IV SCH (04:45)
[2016-08-19] MEDS: KCL 20 MEQ TAB (K-DUR) PO SCH (04:45)
[2016-08-19] MEDS: SUCRALFATE 1 GM (CARAFATE) TAB PO SCH ×4 (06:00→20:45)
[2016-08-19] MEDS: inSUlin (REGULAR) HUMAN 1 UNIT/0.01 ML (CHARGE PER UNIT) SC SCH ×4 (06:00→23:56)
[2016-08-19] MEDS: LEVOFLOXACIN 750 MG/150 ML IV 150 ML IV SCH (07:04)
--- NOTE | 2016-08-19 07:13 | Pulmonary Consultation ---
History of Present Illness History of Present Illness Date of Consultation 08/19/16 07:07 Time Seen by Provider: 07:08 Date of Admission History of Present Illness 55yo with hx of severe oxygen dependent COPD ( 3liters at home Rx ) admitted secondary to respiratory failure. worsening SOB jose with exertion started a few days prior to admission. States he quit smoking 08/15/16. denies any fevers, chills, nausea, vomiting, diarrhea. He was started on broad spectrum Abx and steroids then admitted to ICU for close observation. He has been requiring BiPAP. I am consulted for pulmonary/CC management. Allergies and Home Medications Allergies Coded Allergies: NKANo Known Allergies (Verified Allergy, Unknown, 03/11/13) Home Medications Albuterol Sulfate 1.25 Mg/3 Ml Vial.neb, 1.25 MG IH TID, (Reported) Amlodipine Besylate 10 Mg Tablet, 10 MG PO DAILY, (Reported) Benztropine Mesylate 0.5 Mg Tablet, 0.5 MG PO QID, (Reported) Dexlansoprazole 60 Mg Cap.dr.mp, 60 MG PO DAILY, (Reported) Duloxetine Hcl 60 Mg Capsule.dr, 60 MG PO DAILY, (Reported) Ferrous Sulfate 325 ( 65 )Mg Capsule.sa, 325 MG PO DAILY, (Reported) Fluticasone/Salmeterol 1 Each Blst.w.dev, 1 EACH IH BID, (Reported) Gabapentin 300 Mg Cap, 600 MG PO HS, (Reported) TAKES 2 (300 MG) CAPSULES Haloperidol 5 Mg Tab, 5 MG PO QID, (Reported) TAKES 2 (5 MG) TABLETS Hydrocodone/Acetaminophen 1 Each Tablet, 1 EACH PO BID PRN for PAIN-MILD, ( Reported) Insulin Glargine,Hum.rec.anlog 100 Unit/1 Ml Vial, 55 UNIT SQ HS, (Reported) Insulin Regular Human Rec 100 U/Ml Vial, SQ QID, (Reported) WITH EACH MEAL AND AT BEDTIME PER SLIDING SCALE <150-no insulin 151-200-2 units 201-250-4 units 251-300-6 units 301-350-8 units 351-390-10 units Lorazepam 0.5 Mg Tablet, 0.5 MG PO BID, (Reported) Metformin Hcl 500 Mg Tablet, 500 MG PO BID, (Reported) Metoprolol Succinate 25 Mg Tab.sr.24h, 25 MG PO DAILY, (Reported) Potassium Chloride 20 Meq Tab.prt.sr, 20 MEQ PO BID, (Reported) Roflumilast 500 Mcg Tablet, 500 MCG PO DAILY, (Reported) Sucralfate 1 Gm Tab, 1 GM PO ACHS, (Reported) Tiotropium Reubens 1 Inh Aerp, 1 INH IH DAILY, (Reported) Trazodone HCl 150 Mg Tablet, 50 MG PO HS, (Reported) Past Mxztykq-Kckeqo-Lhxwxy Hx Patient Social History Alcohol Use: Denies Use Recreational Drug Use: No Smoking Status: Former Smoker Type Used: Cigarettes Recent Foreign Travel: No Contact w/Someone Who Travel: No Recent Infectious Disease Expo: No Recent Hopitalizations: No Physical Abuse Screen: No Sexual Abuse: No Immunizations Up To Date Tetanus Booster (TDap): Unknown Date of Pneumonia Vaccine: Sep 18, 2011 Date of Influenza Vaccine: Nov 17, 2013 Seasonal Allergies Seasonal Allergies: No Surgeries HX Surgeries: Yes Surgeries: Tracheostomy Respiratory Hx Respiratory Disorders: Yes Respiratory Disorders: COPD Cardiovascular Hx Cardiac Disorders: Yes Neurological Hx Neurological Disorders: No Reproductive System Hx Reproductive Disorders: No Sexually Transmitted Disease: No HIV/AIDS: No Genitourinary Hx Genitourinary Disorders: No Gastrointestinal Hx Gastrointestinal Disorders: Yes (HX COLON POLYPS) Gastrointestinal Disorders: Ulcer Musculoskeletal Hx Musculoskeletal Disorders: No Musculoskeletal Disorders: Arthritis Endocrine Hx Endocrine Disorders: Yes Endocrine Disorders: Diabetes, Insulin dep HEENT HX ENT Disorders: No Cancer Hx Cancer: No Psychosocial Hx Psychiatric Problems: Yes Behavioral Health Disorders: Anxiety, Schizophrenia, Depression Integumentary HX Skin/Integumentary Disorder: No Blood Transfusions Hx Blood Disorders: No Reviewed Nursing Assessment Reviewed/Agree w Nursing PMH: Yes Family Medical History Family Medial History: Cancer 03 MOTHER, Onset:Unknown 09 BROTHER, Onset:Unknown Cataract 03 MOTHER, Onset:Unknown Family history: Asthma 03 FATHER, Onset:Unknown Family history: Breast disease 03 MOTHER, Onset:Unknown Family history: Diabetes mellitus 03 MOTHER, Onset:Unknown 09 BROTHER, Onset:Unknown Exam Exam Vital Signs Date Time Temp Pulse Resp B/P (MAP) Pulse Ox O2 Delivery O2 Flow Rate FiO2 08/19/16 06:24 94 27 91 80.00 08/19/16 06:00 85 22 108/64 92 NIV Bilevel 80.00 08/19/16 05:00 87 23 107/62 92 NIV Bilevel 80.00 08/19/16 04:10 91 23 89 80.00 08/19/16 04:00 98.7 97 27 125/72 96 NIV Bilevel 80.00 08/19/16 04:00 96 NIV Bilevel 80.00 08/19/16 03:00 90 26 128/73 89 NIV Bilevel 80.00 08/19/16 02:00 97 27 132/79 94 NIV Bilevel 80.00 08/19/16 01:36 93 30 91 80.00 08/19/16 01:00 93 28 136/75 90 NIV Bilevel 80.00 08/19/16 01:00 93 08/19/16 00:00 102 34 129/70 91 NIV Bilevel 80.00 08/18/16 23:55 92 NIV Bilevel 80.00 08/18/16 23:45 99.5 08/18/16 23:00 102 31 128/66 92 NIV Bilevel 80.00 08/18/16 22:43 102 29 93 80.00 08/18/16 22:00 101 26 128/73 94 NIV Bilevel 80.00 08/18/16 21:00 106 38 127/71 92 NIV Bilevel 80.00 08/18/16 20:00 108 37 102/75 93 NIV Bilevel 80.00 08/18/16 20:00 93 NIV Bilevel 80.00 08/18/16 19:55 109 38 93 80.00 08/18/16 19:00 110 08/18/16 19:00 100.0 111 26 117/76 93 NIV Bilevel 80.00 08/18/16 18:23 105 33 93 80.00 08/18/16 18:00 107 34 133/77 92 NIV Bilevel 80.00 08/18/16 17:00 107 33 134/76 92 NIV Bilevel 80.00 08/18/16 16:00 99.5 107 29 127/76 93 NIV Bilevel 80.00 08/18/16 16:00 95 NIV Bilevel 80 08/18/16 16:00 109 38 93 80.00 08/18/16 15:00 109 33 129/75 92 NIV Bilevel 80.00 08/18/16 14:22 107 28 92 80.00 08/18/16 14:00 114 26 134/76 92 NIV Bilevel 80.00 08/18/16 13:21 111 08/18/16 13:00 112 28 130/81 93 NIV Bilevel 80.00 08/18/16 12:07 111 36 92 80.00 08/18/16 12:00 109 30 132/72 92 NIV Bilevel 80.00 08/18/16 12:00 95 NIV Bilevel 80 08/18/16 11:34 99.7 109 26 125/67 92 NIV Bilevel 80.00 08/18/16 11:00 105 20 122/68 90 NIV Bilevel 80.00 08/18/16 10:32 103 31 92 80.00 08/18/16 10:00 107 25 96/67 90 NIV Bilevel 80.00 08/18/16 09:00 104 28 118/78 94 NIV Bilevel 80.00 08/18/16 08:15 105 32 92 80.00 08/18/16 08:00 95 NIV Bilevel 80 08/18/16 08:00 105 23 124/78 95 NIV Bilevel 80.00 08/18/16 07:57 99.3 104 36 108/70 94 NIV Bilevel 80.00 I & O 08/19/16 07:00 Intake Total 3040 ml Output Total 3325 ml Balance -285 ml General Appearance: Moderate Distress HEENT: PERRL/EOMI Neck: Non Tender, Supple Respiratory: Chest Non Tender, Crackles (throughout -upper lung villarreal), Decreased Breath Sounds (bases), Rales, Wheezing (occassional) Cardiovascular: Regular Rate, Rhythm (a little tachy), No Edema, No Murmur Capillary Refill: Less Than 3 Seconds Extremity: Non Tender, No Calf Tenderness Neurologic/Psychiatric: Alert, Oriented x3, Normal Mood/Affect Skin: Normal Color, Warm/Dry Results Lab Laboratory Tests 08/17/16 23:39 08/18/16 05:51 08/19/16 03:56 Assessment/Plan Assessment/Plan Acute on chronic respiratory failure -Pt is doing better with noninvasive ventilation Sepsis secondary to pneumonia -Conitnue Levaquin and Zosyn for now -bernal cultures pending -IVF COPDAE -Steroids, SVNS, oxygen pulmonary edema -Pt respiratory status improved yesterday with lasix will repeat today Schizophrenia/anxiety CAD EF 55-60% DVT/GIppx -cont pepcid add lovenox prognosis is guarded pt will my need mechanical ventilation with intubation. Will obtain PICC line. I am going to repeat ABG. Im giving him another 40mg of Lasix in attempt to keep him off vent. 255 45 min spent with patient and nursing staff. Clinical Quality Measures DVT/VTE Risk/Contraindication: Risk Factor Score Per Nursin RFS Level Per Nursing on Admit: 4+=Very High AMY ROJAS DO Aug 19, 2016 07:12
[2016-08-19 07:39] LABS: ABG BASE EXCESS 5.4 MMOL/L (-2.5-2.5); ABG HCO3 31 MMOL/L (23-27); ABG OXYGEN SATURATION 97 % (94-100); ABG PCO2 55 MMHG (35-45); ABG PH 7.36 (7.37-7.43); ABG PO2 81 MMHG (79-93); ABG TCO2 32.2 MMOL/L (21.0-31.0)
[2016-08-19 07:40] LABS: ALLENS TEST YES-POS; PATIENT TEMP 98.6
--- NOTE | 2016-08-19 08:34 | Progress Note (SOAP) ---
Subjective Subjective Date Seen by Provider: Aug 19, 2016 Time Seen by Provider: 07:50 55 yo M admitted for acute on chronic respiratory distress- no overnight events nursing reports improvement after lasix administration. Arcadio reports he feels better today compared to yesterday except he has a cough. Review of Systems General: No Chills, No Night Sweats HEENT: No Head Aches, No Visual Changes Pulmonary: Dyspnea, Cough Cardiovascular: Orthopnea, No: Chest Pain, Palpitations Gastrointestinal: No: Abdominal Pain, Nausea, Vomiting Genitourinary: No Dysuria, No Frequency Musculoskeletal: No: neck pain, shoulder pain Neurological: Weakness All Other Systems Reviewed All Other Systems Reviewed: Yes Objective Exam Vital Signs Vital Signs Date Time Temp Pulse Resp B/P (MAP) Pulse Ox O2 Delivery O2 Flow Rate FiO2 08/19/16 07:00 97 08/19/16 06:24 94 27 91 80.00 08/19/16 06:00 85 22 108/64 92 NIV Bilevel 80.00 08/19/16 05:00 87 23 107/62 92 NIV Bilevel 80.00 08/19/16 04:10 91 23 89 80.00 08/19/16 04:00 98.7 97 27 125/72 96 NIV Bilevel 80.00 08/19/16 04:00 96 NIV Bilevel 80.00 08/19/16 03:00 90 26 128/73 89 NIV Bilevel 80.00 08/19/16 02:00 97 27 132/79 94 NIV Bilevel 80.00 08/19/16 01:36 93 30 91 80.00 08/19/16 01:00 93 28 136/75 90 NIV Bilevel 80.00 08/19/16 01:00 93 08/19/16 00:00 102 34 129/70 91 NIV Bilevel 80.00 08/18/16 23:55 92 NIV Bilevel 80.00 08/18/16 23:45 99.5 08/18/16 23:00 102 31 128/66 92 NIV Bilevel 80.00 08/18/16 22:43 102 29 93 80.00 08/18/16 22:00 101 26 128/73 94 NIV Bilevel 80.00 08/18/16 21:00 106 38 127/71 92 NIV Bilevel 80.00 08/18/16 20:00 108 37 102/75 93 NIV Bilevel 80.00 08/18/16 20:00 93 NIV Bilevel 80.00 08/18/16 19:55 109 38 93 80.00 08/18/16 19:00 110 08/18/16 19:00 100.0 111 26 117/76 93 NIV Bilevel 80.00 08/18/16 18:23 105 33 93 80.00 08/18/16 18:00 107 34 133/77 92 NIV Bilevel 80.00 08/18/16 17:00 107 33 134/76 92 NIV Bilevel 80.00 08/18/16 16:00 99.5 107 29 127/76 93 NIV Bilevel 80.00 08/18/16 16:00 95 NIV Bilevel 80 08/18/16 16:00 109 38 93 80.00 08/18/16 15:00 109 33 129/75 92 NIV Bilevel 80.00 08/18/16 14:22 107 28 92 80.00 08/18/16 14:00 114 26 134/76 92 NIV Bilevel 80.00 08/18/16 13:21 111 08/18/16 13:00 112 28 130/81 93 NIV Bilevel 80.00 08/18/16 12:07 111 36 92 80.00 08/18/16 12:00 109 30 132/72 92 NIV Bilevel 80.00 08/18/16 12:00 95 NIV Bilevel 80 08/18/16 11:34 99.7 109 26 125/67 92 NIV Bilevel 80.00 08/18/16 11:00 105 20 122/68 90 NIV Bilevel 80.00 08/18/16 10:32 103 31 92 80.00 08/18/16 10:00 107 25 96/67 90 NIV Bilevel 80.00 08/18/16 09:00 104 28 118/78 94 NIV Bilevel 80.00 I & O 08/19/16 07:00 Intake Total 3040 ml Output Total 3325 ml Balance -285 ml General Appearance: Moderate Distress (respiratory) HEENT: PERRL/EOMI Neck: Non Tender, Supple Respiratory: Chest Non Tender, Crackles (throughout -upper lung villarreal), Decreased Breath Sounds (bases), Rales, Wheezing (occassional) Cardiovascular: Regular Rate, Rhythm, No Edema, No Murmur Gastrointestinal: Normal Bowel Sounds, Non Tender, Soft Rectal: Deferred Back: No CVA Tenderness Extremity: Non Tender, No Calf Tenderness Neurologic/Psychiatric: Alert, Oriented x3, Normal Mood/Affect Skin: Normal Color, Warm/Dry Results Lab Laboratory Tests 08/18/16 10:30: Glucometer 331H 08/18/16 10:35: Lactic Acid Level 1.63 08/18/16 18:08: Glucometer 263H 08/18/16 23:49: Glucometer 242H 08/19/16 03:56: White Blood Count 22.5H, Red Blood Count 4.62, Hemoglobin 12.7L, Hematocrit 39L , Mean Corpuscular Volume 85, Mean Corpuscular Hemoglobin 28, Mean Corpuscular Hemoglobin Concent 33, Red Cell Distribution Width 14.2, Platelet Count 244, Mean Platelet Volume 9.7, Neutrophils (%) (Auto) 94H, Lymphocytes (%) (Auto) 4L , Monocytes (%) (Auto) 3, Eosinophils (%) (Auto) 0, Basophils (%) (Auto) 0, Neutrophils # (Auto) 21.1H, Lymphocytes # (Auto) 0.8L, Monocytes # (Auto) 0.6, Eosinophils # (Auto) 0.0, Basophils # (Auto) 0.0, Sodium Level 132L, Potassium Level 3.8, Chloride Level 93L, Carbon Dioxide Level 25, Anion Gap 14, Blood Urea Nitrogen 11, Creatinine 0.65, Estimat Glomerular Filtration Rate > 60, BUN/ Creatinine Ratio 17, Glucose Level 253H, Calcium Level 9.2, Phosphorus Level 3.3 , Magnesium Level 1.6L 08/19/16 07:32: Blood Gas Puncture Site R RADIAL, Blood Gas Patient Temperature 98.6, Arterial Blood pH 7.36L, Arterial Blood Partial Pressure CO2 55H, Arterial Blood Partial Pressure O2 81, Arterial Blood HCO3 31H, Arterial Blood Total CO2 32.2H, Arterial Blood Oxygen Saturation 97, Arterial Blood Base Excess 5.4H, Westley Test YES-POS, Blood Gas Ventilator Setting NA, Blood Gas Inspired Oxygen 80% Microbiology 08/17/16 Blood Culture - Preliminary, Resulted No growth Assessment/Plan Assessment/Plan Assessment/Plan 55 yo M *acute hypoxic respiratory failure- secondary to pneumonia and COPD exacerbation- BiPap- RT consulted Dr. Jewell consulted. He thinks pt will likely need to be intubated. *COPD exacerbation- RT, methylprednisolone 60mg q8hr iv, SVN *Sepsis due to Pneumonia- levofloxacin, zosyn, blood / sputum cultures ordered WBC trending down *Lactic acidosis- due to hypoxia- resolved *hyponatremia- improved *DMII with hyperglycemia- worsened by steroids, insulin q6hr while in ICU *schizophrenia/anxiety/depression- will resume home meds. *h/o peptic ulcer disease- gi ppx while on steroids *CAD- mild, LVEF 55-60% 06/18/2016 *hypomagnesemia- replacing GI ppx: pepcid DVT ppx: lovenox Dispo: Dr. Jewell consulted. He thinks pt may need to be intubated. will watch what next 24-48hr brings Problems: Clinical Quality Measures DVT/VTE Risk/Contraindication: Risk Factor Score Per Nursin RFS Level Per Nursing on Admit: 4+=Very High MARKOS RAO MD Aug 19, 2016 08:34
--- NOTE | 2016-08-19 08:36 | Diagnostic Imaging Report ---
INDICATION: Dyspnea. COMPARISON: 08/17/2016. FINDINGS: Single frontal radiographic view of the chest was obtained and demonstrates diffuse interstitial opacities, bilaterally. Overall, degree of interstitial airspace disease appears to have progressed since the prior exam. Bilateral lower lung villarreal are obscured secondary to overlying soft tissue attenuation, but there is no appreciable large effusion or pneumothorax. Cardiac silhouette appears enlarged, but is also obscured. IMPRESSION: 1. Interval progression of diffuse interstitial infiltrate. Dictated by: Dictated on workstation # [id number]
[2016-08-19] MEDS: PIPERACILLIN SODIUM/TAZOBACTAM 4.5 GM in NS (IVPB) 100 ML IV SCH ×3 (08:56→23:54)
[2016-08-19] MEDS: methylPREDNISolone 125 MG (Solu-MEDROL) VIAL IVP SCH ×3 (08:57→23:54)
[2016-08-19] MEDS: FUROSEMIDE 40 MG/4 ML INJ (LASIX) IVP SCH (08:57)
[2016-08-19] MEDS: amLODIPine 10 MG (NORVASC) TAB PO SCH ×3 (08:57→09:00)
[2016-08-19] MEDS: BENZTROPINE MESYLATE 1 MG (COGENTIN) TAB PO SCH ×4 (08:57→20:45)
[2016-08-19] MEDS: HALOPERIDOL 5 MG (HALDOL) TAB PO SCH ×4 (08:58→20:45)
[2016-08-19] MEDS: FAMOTIDINE 20MG/2ML IV (PEPCID) IVP SCH ×2 (08:58→20:45)
[2016-08-19] MEDS: DULoxetine 30 MG (CYMBALTA) CAP PO SCH (08:58)
[2016-08-19] MEDS: ROFLUMILAST 500 MCG TAB (DALIRESP) PO SCH (08:58)
[2016-08-19] MEDS: ENOXAPARIN 40 MG/0.4 ML (LOVENOX) SYR SC SCH (08:59)
[2016-08-19] MEDS ORDERED: HYDR50TA76 PO (10:47)
[2016-08-19] MEDS ORDERED: INSU100I10 SQ (10:47)
[2016-08-19] MEDS ORDERED: METO-270 PO (10:47)
[2016-08-19] MEDS ORDERED: POTA20TA8 PO (10:47)
[2016-08-19] MEDS ORDERED: GABA-488 PO (10:47)
[2016-08-19] MEDS ORDERED: MULT1TAB69 PO (10:47)
[2016-08-19] MEDS ORDERED: AMLO10TA2 PO (10:47)
[2016-08-19] MEDS ORDERED: ALBU2.5V4 IH (10:47)
[2016-08-19] MEDS ORDERED: METF500T4 PO (10:47)
[2016-08-19] MEDS ORDERED: HYDR-3812 PO (10:47)
[2016-08-19] MEDS ORDERED: TIOT4MIS2 IH (10:47)
[2016-08-19] MEDS ORDERED: BUDE10.2 IH (10:47)
[2016-08-19] MEDS ORDERED: DULO60CA58 PO (10:47)
[2016-08-19] MEDS ORDERED: HALO5TAB PO (10:47)
[2016-08-19] MEDS ORDERED: RSP50S INJ (10:50)
[2016-08-19] MEDS ORDERED: VANCOMYCIN INJECTION 0.1 MG in NS (IVPB) 250 ML IV SCH (19:00)
[2016-08-19] MEDS ORDERED: VANCOMYCIN 1000 MG/VIAL ONE (19:05)
[2016-08-19] MEDS ORDERED: NS (IVPB) 250 ML ONE (19:05)
[2016-08-19] MEDS ORDERED: VANCOMYCIN 2000 MG/NS 500 ML IVPB IV NR ×2 (19:15)
[2016-08-19] MEDS ORDERED: VANCOMYCIN INJECTION 1,000 MG in NS (IVPB) 250 ML IV ONE (19:30)
[2016-08-19] MEDS: GABAPENTIN 300 MG (NEURONTIN) CAP PO SCH (20:45)
[2016-08-19] MEDS: inSUlin DETERMIR 1 UNIT/0.01 ML (LEVEMIR) CHARGE PER UNIT SQ SCH (20:46)
[2016-08-20] VITALS (38 sets, daily range): BP systolic 96–151; BP diastolic 53–86
[2016-08-20] MEDS: RT-ALBUTEROL/IPRATROPIUM 3 ML (DUONEB) VIAL INH SCH ×6 (02:47→21:20)
[2016-08-20] MEDS: NS IV 1000 ML 1,000 ML IV SCH (04:39)
[2016-08-20 04:42] LABS: BASOPHILS % (AUTO) 0 % (0-10); EOSINOPHILS % (AUTO) 0 % (0-10); LYMPHOCYTES # (AUTO) 0.7 X 10^3 (1.0-4.0); LYMPHOCYTES % (AUTO) 3 % (12-44); MEAN CORPUSCULAR HEMOGLOBIN 28 PG (25-34); MEAN CORPUSCULAR HGB CONC 32 G/DL (32-36); MEAN CORPUSCULAR VOLUME 86 FL (80-99); MEAN PLATELET VOLUME 9.6 FL (7.4-10.4); MONOCYTES # (AUTO) 0.7 X 10^3 (0.0-1.0); MONOCYTES % (AUTO) 3 % (0-12); NEUTROPHILS # (AUTO) 21.9 X 10^3 (1.8-7.8); NEUTROPHILS % (AUTO) 94 % (42-75); PLATELET COUNT 266 10^3/uL (130-400); RED BLOOD COUNT 4.69 10^6/uL (4.35-5.85); RED CELL DISTRIBUTION WIDTH 14.3 % (10.0-14.5); WHITE BLOOD COUNT 23.3 10^3/uL (4.3-11.0)
[2016-08-20 04:43] LABS: ABG BASE EXCESS 5.4 MMOL/L (-2.5-2.5); ABG HCO3 32 MMOL/L (23-27); ABG OXYGEN SATURATION 95 % (94-100); ABG PCO2 65 MMHG (35-45); ABG PO2 73 MMHG (79-93); ABG TCO2 33.5 MMOL/L (21.0-31.0)
[2016-08-20 04:45] LABS: ABG PH 7.31 (7.37-7.43)
[2016-08-20 04:46] LABS: ALLENS TEST YES-POS; PATIENT TEMP 98.2
[2016-08-20 04:57] LABS: ANION GAP 11 MMOL/L (5-14); BLOOD UREA NITROGEN 14 MG/DL (7-18); BUN/CREATININE RATIO 22; CALCIUM 9.1 MG/DL (8.5-10.1); CARBON DIOXIDE 29 MMOL/L (21-32); CHLORIDE 95 MMOL/L (98-107); CREATININE SERUM 0.63 MG/DL (0.60-1.30); GFR ESTIMATED > 60; GLUCOSE 243 MG/DL (70-105); MAGNESIUM 2.1 MG/DL (1.8-2.4); POTASSIUM 3.9 MMOL/L (3.6-5.0); SODIUM 135 MMOL/L (135-145)
[2016-08-20] MEDS: POTASSIUM CL 10MEQ/50ML IVPB 50 ML IV SCH (05:09)
[2016-08-20] MEDS: MAGNESIUM 1 GM/100 ML IVPB 100 ML IV SCH (05:09)
[2016-08-20] MEDS: KCL 20 MEQ TAB (K-DUR) PO SCH (05:10)
[2016-08-20] MEDS: SUCRALFATE 1 GM (CARAFATE) TAB PO SCH (05:22)
[2016-08-20] MEDS: inSUlin (REGULAR) HUMAN 1 UNIT/0.01 ML (CHARGE PER UNIT) SC SCH ×3 (05:22→19:10)
[2016-08-20] MEDS: LEVOFLOXACIN 750 MG/150 ML IV 150 ML IV SCH (06:06)
[2016-08-20] MEDS: VANCOMYCIN 1500 MG/NS 500 ML IVPB IV SCH ×2 (06:08)
--- NOTE | 2016-08-20 06:33 | Pulmonary Progress Note ---
Subjective Time Seen by Provider: 06:00 Subjective/Events-last exam Pt is still requiring 85% Fi02 and ABG appears more respiratory acidotic. Will proceed with intubation. Exam Exam Vital Signs Date Time Temp Pulse Resp B/P (MAP) Pulse Ox O2 Delivery O2 Flow Rate FiO2 08/20/16 06:00 82 31 117/62 95 NIV Bilevel 85.00 08/20/16 05:00 92 30 143/81 95 NIV Bilevel 85.00 08/20/16 04:20 89 23 93 85.00 08/20/16 04:00 92 24 132/73 94 NIV Bilevel 85.00 08/20/16 03:50 95 NIV Bilevel 85.00 08/20/16 03:50 98.2 08/20/16 03:00 93 29 120/74 95 NIV Bilevel 85.00 08/20/16 02:47 89 24 95 85.00 08/20/16 02:00 92 27 151/86 97 NIV Bilevel 85.00 08/20/16 01:00 85 08/20/16 01:00 85 30 119/69 94 NIV Bilevel 85.00 08/20/16 00:27 86 25 94 85.00 08/20/16 00:00 99.8 88 24 115/68 94 NIV Bilevel 85.00 08/20/16 00:00 94 NIV Bilevel 85.00 08/19/16 23:00 96 27 118/66 94 NIV Bilevel 85.00 08/19/16 22:12 94 31 94 85.00 08/19/16 22:00 105 13 124/70 96 NIV Bilevel 85.00 08/19/16 21:00 101 33 135/76 98 NIV Bilevel 85.00 08/19/16 20:00 109 17 115/79 85 NIV Bilevel 85.00 08/19/16 19:30 96 NIV Bilevel 80.00 08/19/16 19:00 110 08/19/16 19:00 100.1 113 33 121/68 96 NIV Bilevel 85.00 08/19/16 18:39 102 33 89 80.00 08/19/16 18:00 98 28 92/80 NIV Bilevel 80.00 08/19/16 17:00 100 24 144/70 NIV Bilevel 80.00 08/19/16 16:03 98 30 94 80.00 08/19/16 16:00 98.4 98 31 141/71 93 NIV Bilevel 80.00 08/19/16 15:11 96 NIV Bilevel 80.00 08/19/16 15:00 89 27 121/65 NIV Bilevel 08/19/16 14:00 96 29 121/67 NIV Bilevel 08/19/16 13:47 94 28 94 80.00 08/19/16 13:00 29 131/71 NIV Bilevel 08/19/16 13:00 96 08/19/16 11:52 96 NIV Bilevel 80.00 08/19/16 11:51 99.6 96 26 137/76 91 NIV Bilevel 80.00 08/19/16 10:14 91 26 92 80.00 08/19/16 10:00 94 27 133/76 94 NIV Bilevel 80.00 08/19/16 09:00 94 27 119/73 92 NIV Bilevel 80.00 08/19/16 08:27 95 30 93 80.00 08/19/16 08:00 96 NIV Bilevel 80.00 08/19/16 08:00 98.6 92 25 100/72 92 NIV Bilevel 80.00 08/19/16 07:00 97 08/19/16 07:00 98 127/76 I & O 08/20/16 07:00 Intake Total 2761 ml Output Total 2875 ml Balance -114 ml General Appearance: Moderate Distress (respiratory distress ) HEENT: PERRL/EOMI Neck: Non Tender, Supple Respiratory: Chest Non Tender, Crackles (throughout -upper lung villarreal), Decreased Breath Sounds (bases), Rales, Wheezing (occassional) Cardiovascular: Regular Rate, Rhythm, No Edema, No Murmur Capillary Refill: Less Than 3 Seconds Extremity: Non Tender, No Calf Tenderness Neurologic/Psychiatric: Alert, Oriented x3, Normal Mood/Affect Skin: Normal Color, Warm/Dry Results Lab Laboratory Tests 08/19/16 03:56 08/20/16 04:30 Assessment/Plan Assessment/Plan Acute on chronic respiratory failure with ARDS Pa02/Fi02 is 85 -Pt is not improving on BiPAP. His ABG is worse. Will proceed with intubation. -Obtain CXR stat and ABG in 1hr -Diprivan for sedation Sepsis secondary to pneumonia -Conitnue Levaquin and Zosyn for now -bernal cultures pending -IVF COPDAE -Steroids, SVNS, oxygen pulmonary edema -Pt respiratory status improved yesterday with lasix will repeat today Schizophrenia/anxiety CAD EF 55-60% DVT/GIppx -cont Pepcid add Lovenox 233 I spoke with family about patients current critical condition and need for mechanical intubation. 120min was spent with patient, discussing with family and medical staff not including intubation. Clinical Quality Measures DVT/VTE Risk/Contraindication: Risk Factor Score Per Nursin RFS Level Per Nursing on Admit: 4+=Very High AMY ROAJS DO Aug 20, 2016 06:33
[2016-08-20] MEDS ORDERED: PROPOFOL DRIP (ICU) 100 ML IV ONE (06:39)
[2016-08-20] MEDS ORDERED: proPOfol 200 MG/20 ML (DIPRIVAN) VIAL IV ONE (06:49)
[2016-08-20] MEDS ORDERED: NS IV 1000 ML 1,000 ML IV SCH (07:00)
[2016-08-20] MEDS ORDERED: PROMETHAZINE INJ 25 MG/ML (PHENERGAN) AMP IVP ONE (07:00)
[2016-08-20] MEDS: PROPOFOL DRIP (ICU) 100 ML IV SCH ×5 (07:41→21:52)
[2016-08-20] MEDS ORDERED: MIDAZOLAM 5 MG/5 ML (VERSED) VIAL IVP ONE (07:45)
--- NOTE | 2016-08-20 08:06 | Pulmonary Procedures ---
Pulmonary Procedures Date of Procedure Date of Service: Aug 20, 2016 Reason for Intubation: respiratory failure Time of Intubation: 08:05 Intubation Method: orotracheal Medications: Propofol, Versed Positive End Tide CO2: Yes Breath Sounds after Intubation: bilateral-equal Intubation Complications: no complications Post Intubation Xray: Yes AMY ROJAS DO Aug 20, 2016 08:06
--- NOTE | 2016-08-20 08:24 | Diagnostic Imaging Report ---
INDICATION: Intubation. TECHNIQUE: Single view chest 8:08 AM. CORRELATION STUDY: 08/20/2016 FINDINGS: Since the prior study, endotracheal tube is in place tip projects over the mid chest at the level of thoracic inlet. Gastric tube is also in place passing below the left hemidiaphragm. Right-sided central line unchanged in the cavoatrial junction. Heart size and mediastinum generally stable. Extensive coarse 5 lobed infiltrates do remain overall generally stable. IMPRESSION: 1. Interval intubation and placement of gastric tube. Extensive bilateral pulmonary infiltrates persisting. Dictated by: Dictated on workstation # [id number]
--- NOTE | 2016-08-20 08:25 | Diagnostic Imaging Report ---
INDICATION: Dyspnea Upright portable chest shows cardiomegaly with persistent diffuse bilateral infiltrates. No alveolar consolidation is seen. There is no effusion or pneumothorax. There has been placement of a PICC line from right arm since 08/19/16. Tip is in the superior vena cava right atrial junction region. IMPRESSION: PICC line tip is in the SVC right atrial junction region. Stable interstitial infiltrates. Dictated by: Dictated on workstation # [id number]
--- NOTE | 2016-08-20 09:04 | Progress Note (SOAP) ---
Subjective Date Seen by Provider: Aug 20, 2016 Time Seen by Provider: 08:50 Subjective/Events-last exam PT IS A 55 Y/O MALE WHO IS A CLINIC PATIENT OF DR. 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 THE PATIENT WAS ADMITTED THROUGH THE EMERGENCY DEPARTMENT, FOUND TO BE IN RESPIRATORY DISTRESS WITH PNEUMONIA. HE HAS BEEN DECLINING FOR THE PAST FEW DAYS WITH WORSENING RESPIRATORY DISTRESS AND WAS INTUBATED EARLY THIS MORNING. PT WAS UNABLE TO RESPOND TO QUESTIONS THIS MORNING. Review of Systems UNABLE TO OBTAIN ROS DUE TO INTUBATED STATUS Objective Exam Vital Signs Date Time Temp Pulse Resp B/P (MAP) Pulse Ox O2 Delivery O2 Flow Rate FiO2 08/20/16 08:00 101 23 126/73 94 Mechanical Ventilator 100.00 08/20/16 07:41 127/69 08/20/16 07:32 104 23 94 100 08/20/16 07:00 86 28 135/76 97 NIV Bilevel 85.00 08/20/16 07:00 86 08/20/16 06:00 82 31 117/62 95 NIV Bilevel 85.00 08/20/16 05:00 92 30 143/81 95 NIV Bilevel 85.00 08/20/16 04:20 89 23 93 85.00 08/20/16 04:00 92 24 132/73 94 NIV Bilevel 85.00 08/20/16 03:50 95 NIV Bilevel 85.00 08/20/16 03:50 98.2 08/20/16 03:00 93 29 120/74 95 NIV Bilevel 85.00 08/20/16 02:47 89 24 95 85.00 08/20/16 02:00 92 27 151/86 97 NIV Bilevel 85.00 08/20/16 01:00 85 08/20/16 01:00 85 30 119/69 94 NIV Bilevel 85.00 08/20/16 00:27 86 25 94 85.00 08/20/16 00:00 99.8 88 24 115/68 94 NIV Bilevel 85.00 08/20/16 00:00 94 NIV Bilevel 85.00 08/19/16 23:00 96 27 118/66 94 NIV Bilevel 85.00 08/19/16 22:12 94 31 94 85.00 08/19/16 22:00 105 13 124/70 96 NIV Bilevel 85.00 08/19/16 21:00 101 33 135/76 98 NIV Bilevel 85.00 08/19/16 20:00 109 17 115/79 85 NIV Bilevel 85.00 08/19/16 19:30 96 NIV Bilevel 80.00 08/19/16 19:00 110 08/19/16 19:00 100.1 113 33 121/68 96 NIV Bilevel 85.00 08/19/16 18:39 102 33 89 80.00 08/19/16 18:00 98 28 92/80 NIV Bilevel 80.00 08/19/16 17:00 100 24 144/70 NIV Bilevel 80.00 08/19/16 16:03 98 30 94 80.00 08/19/16 16:00 98.4 98 31 141/71 93 NIV Bilevel 80.00 08/19/16 15:11 96 NIV Bilevel 80.00 08/19/16 15:00 89 27 121/65 NIV Bilevel 08/19/16 14:00 96 29 121/67 NIV Bilevel 08/19/16 13:47 94 28 94 80.00 08/19/16 13:00 29 131/71 NIV Bilevel 08/19/16 13:00 96 08/19/16 11:52 96 NIV Bilevel 80.00 08/19/16 11:51 99.6 96 26 137/76 91 NIV Bilevel 80.00 08/19/16 10:14 91 26 92 80.00 08/19/16 10:00 94 27 133/76 94 NIV Bilevel 80.00 I & O 08/20/16 06:59 Intake Total 2761 ml Output Total 2875 ml Balance -114 ml Capillary Refill : Less Than 3 Seconds General Appearance: WD/WN, Mild Distress Respiratory: Crackles, Decreased Breath Sounds, Other (INTUBATED) Cardiovascular: Regular Rate, Rhythm Gastrointestinal: normal bowel sounds, non tender, soft, other (LARGE VENTRAL HERNIA) Neurologic/Psychiatric: Other (INTUBATED, SEDATED) Skin: Warm/Dry Lymphatic: No Adenopathy Results Lab Laboratory Tests 08/19/16 11:42: Glucometer 265H 08/19/16 16:36: Glucometer 343H 08/19/16 23:56: Glucometer 230H 08/20/16 04:30: White Blood Count 23.3H, Red Blood Count 4.69, Hemoglobin 13.0L, Hematocrit 40, Mean Corpuscular Volume 86, Mean Corpuscular Hemoglobin 28, Mean Corpuscular Hemoglobin Concent 32, Red Cell Distribution Width 14.3, Platelet Count 266, Mean Platelet Volume 9.6, Neutrophils (%) (Auto) 94H, Lymphocytes (%) (Auto) 3L , Monocytes (%) (Auto) 3, Eosinophils (%) (Auto) 0, Basophils (%) (Auto) 0, Neutrophils # (Auto) 21.9H, Lymphocytes # (Auto) 0.7L, Monocytes # (Auto) 0.7, Eosinophils # (Auto) 0.0, Basophils # (Auto) 0.0, Blood Gas Puncture Site LEFT RADIAL, Blood Gas Patient Temperature 98.2, Arterial Blood pH 7.31*L, Arterial Blood Partial Pressure CO2 65H, Arterial Blood Partial Pressure O2 73L, Arterial Blood HCO3 32H, Arterial Blood Total CO2 33.5H, Arterial Blood Oxygen Saturation 95, Arterial Blood Base Excess 5.4H, Westley Test YES-POS, Blood Gas Ventilator Setting NO, Blood Gas Inspired Oxygen 85%, Sodium Level 135, Potassium Level 3.9, Chloride Level 95L, Carbon Dioxide Level 29, Anion Gap 11, Blood Urea Nitrogen 14, Creatinine 0.63, Estimat Glomerular Filtration Rate > 60 , BUN/Creatinine Ratio 22, Glucose Level 243H, Calcium Level 9.1, Phosphorus Level 3.0, Magnesium Level 2.1 Microbiology 08/17/16 Blood Culture - Preliminary, Resulted No growth Assessment/Plan Assessment/Plan Assess & Plan/Chief Complaint RESPIRATORY FAILURE PNEUMONIA SEPSIS COPD WITH ACUTE EXACERBATION DIABETES MELLITUS SCHIZOPHRENIA DEPRESSION RESPIRATORY FAILURE WITH PNEUMONIA -PT ON IV ANTIBIOTICS, INTUBATED EARLY THIS MORNING, DEFER TO DR. ROJAS - THE PT IS ON LEVAQUIN, VANCOMYCIN, ZOSYN, - CONTINUE WITH CURRENT TREATMENT - SERIAL CHEST XRAYS. SEPSIS - SYMPTOMS STABLE, LACTIC ACIDOSIS RESOLVED. COPD WITH ACUTE EXACERBATION - PT ON SOLUMEDROL IV. DIABETES MELLITUS - ON INSULIN PROTOCOL, MONITOR FSBS, STOP LEVEMIR AT THIS TIME PT IS INTUBATED. SCHIZOPHRENIA AND DEPRESSION - DUE TO INTUBATED AND SEDATED STATUS, WILL DECREASE HALDOL TO TWICE DAILY UNTIL 08/23/16 - AND THEN RESUME QID DOSING - IF PT IS STILL INTUBATED, WILL NEED TO DECREASE THE HALDOL AGAIN THERE IS AN AUTOMATIC RESTART FOR QID DOSING ON 08/23/16 ON HIS MED/ORDER LIST. Clinical Quality Measures DVT/VTE Risk/Contraindication: Risk Factor Score Per Nursin RFS Level Per Nursing on Admit: 4+=Very High TIANNA RIVERA MD Aug 20, 2016 09:04
[2016-08-20] MEDS: methylPREDNISolone 125 MG (Solu-MEDROL) VIAL IVP SCH ×2 (09:28→17:00)
[2016-08-20] MEDS: BENZTROPINE MESYLATE 1 MG (COGENTIN) TAB PO SCH ×2 (09:28→21:34)
[2016-08-20] MEDS: HALOPERIDOL 5 MG (HALDOL) TAB PO SCH ×2 (09:28→21:33)
[2016-08-20] MEDS: PIPERACILLIN SODIUM/TAZOBACTAM 4.5 GM in NS (IVPB) 100 ML IV SCH ×2 (09:28→17:00)
[2016-08-20] MEDS: FUROSEMIDE 40 MG/4 ML INJ (LASIX) IVP SCH (09:29)
[2016-08-20] MEDS: amLODIPine 10 MG (NORVASC) TAB PO SCH (09:29)
[2016-08-20] MEDS: DULoxetine 30 MG (CYMBALTA) CAP PO SCH (09:29)
[2016-08-20] MEDS: FAMOTIDINE 20MG/2ML IV (PEPCID) IVP SCH ×2 (09:29→21:29)
[2016-08-20] MEDS: ENOXAPARIN 40 MG/0.4 ML (LOVENOX) SYR SC SCH (09:40)
[2016-08-20] MEDS: ROFLUMILAST 500 MCG TAB (DALIRESP) PO SCH (09:40)
[2016-08-20 09:45] LABS: ABG BASE EXCESS 3.9 MMOL/L (-2.5-2.5); ABG HCO3 30 MMOL/L (23-27); ABG OXYGEN SATURATION 95 % (94-100); ABG PCO2 68 MMHG (35-45); ABG PO2 79 MMHG (79-93); ABG TCO2 32.5 MMOL/L (21.0-31.0)
[2016-08-20 09:52] LABS: ABG PH 7.27 (7.37-7.43); ALLENS TEST YES-POS; PATIENT TEMP 97.7
[2016-08-20] MEDS ORDERED: LACTATED RINGERS 500 ML IV SCH (22:30)
[2016-08-21] VITALS (36 sets, daily range): BP systolic 78–139; BP diastolic 48–77
[2016-08-21] MEDS: inSUlin (REGULAR) HUMAN 1 UNIT/0.01 ML (CHARGE PER UNIT) SC SCH ×5 (00:22→20:38)
[2016-08-21] MEDS: methylPREDNISolone 125 MG (Solu-MEDROL) VIAL IVP SCH ×2 (00:22→08:37)
[2016-08-21] MEDS: PIPERACILLIN SODIUM/TAZOBACTAM 4.5 GM in NS (IVPB) 100 ML IV SCH ×3 (00:23→16:51)
[2016-08-21] MEDS: PROPOFOL DRIP (ICU) 100 ML IV SCH ×7 (00:39→22:44)
[2016-08-21] MEDS: RT-ALBUTEROL/IPRATROPIUM 3 ML (DUONEB) VIAL INH SCH ×6 (01:05→21:40)
[2016-08-21] MEDS: LACTATED RINGERS 500 ML IV SCH ×6 (03:05→08:41)
[2016-08-21 04:47] LABS: ABG BASE EXCESS 3.8 MMOL/L (-2.5-2.5); ABG HCO3 29 MMOL/L (23-27); ABG OXYGEN SATURATION 87 % (94-100); ABG PCO2 60 MMHG (35-45); ABG PO2 56 MMHG (79-93); ABG TCO2 31.1 MMOL/L (21.0-31.0)
[2016-08-21 04:50] LABS: BASOPHILS % (AUTO) 0 % (0-10); EOSINOPHILS % (AUTO) 0 % (0-10); LYMPHOCYTES # (AUTO) 0.5 X 10^3 (1.0-4.0); LYMPHOCYTES % (AUTO) 3 % (12-44); MEAN CORPUSCULAR HEMOGLOBIN 28 PG (25-34); MEAN CORPUSCULAR HGB CONC 32 G/DL (32-36); MEAN CORPUSCULAR VOLUME 87 FL (80-99); MEAN PLATELET VOLUME 9.7 FL (7.4-10.4); MONOCYTES # (AUTO) 0.6 X 10^3 (0.0-1.0); MONOCYTES % (AUTO) 4 % (0-12); NEUTROPHILS # (AUTO) 16.2 X 10^3 (1.8-7.8); NEUTROPHILS % (AUTO) 94 % (42-75); PLATELET COUNT 252 10^3/uL (130-400); RED BLOOD COUNT 4.43 10^6/uL (4.35-5.85); RED CELL DISTRIBUTION WIDTH 14.5 % (10.0-14.5); WHITE BLOOD COUNT 17.3 10^3/uL (4.3-11.0)
[2016-08-21 04:54] LABS: ABG PH 7.32 (7.37-7.43); ALLENS TEST YES-POS
[2016-08-21 04:55] LABS: PATIENT TEMP 99.8
[2016-08-21 05:13] LABS: CALCIUM 8.8 MG/DL (8.5-10.1); CREATININE SERUM 2.02 MG/DL (0.60-1.30); MAGNESIUM 2.1 MG/DL (1.8-2.4); PHOSPHORUS 3.2 MG/DL (2.3-4.7); POTASSIUM 3.5 MMOL/L (3.6-5.0)
[2016-08-21] MEDS: NS IV 1000 ML 1,000 ML IV SCH ×2 (05:25→16:57)
[2016-08-21] MEDS ORDERED: TROUGH ORDER-PHARMACY XX NR (06:00)
[2016-08-21] MEDS: MAGNESIUM 1 GM/100 ML IVPB 100 ML IV SCH (06:00)
[2016-08-21] MEDS: POTASSIUM CL 10MEQ/50ML IVPB 50 ML IV SCH ×6 (06:00→11:03)
[2016-08-21] MEDS: LEVOFLOXACIN 750 MG/150 ML IV 150 ML IV SCH (07:11)
--- NOTE | 2016-08-21 07:12 | Diagnostic Imaging Report ---
INDICATION: Dyspnea. Comparison with 08/20/2016. FINDINGS: ET tube and NG tube as well as right PICC line are unchanged. There continues to be five lobed alveolar infiltrates. There is some increasing atelectasis in the lung bases on today's study, more prominent on the left. There is now obscuration of the left hemidiaphragm. IMPRESSION: 1. Tubes and lines remain in good position. 2. Increasing density in the lung bases likely representing some associated atelectasis along with alveolar infiltrate. Dictated by: Dictated on workstation # [id number]
[2016-08-21] MEDS: VANCOMYCIN 1500 MG/NS 500 ML IVPB IV SCH ×2 (07:23)
--- NOTE | 2016-08-21 07:36 | Pulmonary Progress Note ---
Subjective Time Seen by Provider: 07:30 Subjective/Events-last exam PT is intubated and sedated. UO has decreased through the night. He did receive 2 liters of LR. Exam Exam Vital Signs Date Time Temp Pulse Resp B/P (MAP) Pulse Ox O2 Delivery O2 Flow Rate FiO2 08/21/16 07:05 133 26 105/72 90 Mechanical Ventilator 45.00 08/21/16 06:43 112 35 96 45 08/21/16 06:00 120 31 115/64 91 Mechanical Ventilator 45.00 08/21/16 05:00 105 35 99/54 96 Mechanical Ventilator 45.00 08/21/16 04:12 114 35 95 45 08/21/16 04:01 121 43 87 50 08/21/16 04:00 98.5 107 26 129/60 94 Mechanical Ventilator 45.00 08/21/16 04:00 Mechanical Ventilator 45.00 08/21/16 03:35 104 26 114/63 96 Mechanical Ventilator 45.00 08/21/16 03:31 104 08/21/16 03:27 105 28 95 50 08/21/16 03:00 105 29 110/58 95 Mechanical Ventilator 50.00 08/21/16 02:00 105 113/62 95 Mechanical Ventilator 50.00 08/21/16 01:30 107 28 110/60 95 Mechanical Ventilator 50.00 08/21/16 01:05 108 28 95 55 08/21/16 01:00 105 108/62 96 Mechanical Ventilator 55.00 08/21/16 01:00 106 08/21/16 00:39 107 28 111/59 95 Mechanical Ventilator 55.00 08/21/16 00:00 Mechanical Ventilator 55.00 08/21/16 00:00 99.5 104 28 101/55 95 Mechanical Ventilator 55.00 08/20/16 23:46 105 28 96/54 97 Mechanical Ventilator 55.00 08/20/16 23:42 105 28 96 60 08/20/16 23:00 111 28 114/61 94 Mechanical Ventilator 60.00 08/20/16 22:00 110 30 101/54 96 Mechanical Ventilator 60.00 08/20/16 21:52 113 32 105/62 98 Mechanical Ventilator 60.00 08/20/16 21:20 104 28 94 60 08/20/16 21:00 109 28 110/60 94 Mechanical Ventilator 60.00 08/20/16 20:26 112 59 95 60 08/20/16 20:00 Mechanical Ventilator 60.00 08/20/16 20:00 98.7 111 30 114/58 94 Mechanical Ventilator 60.00 08/20/16 19:07 120/66 08/20/16 19:00 109 32 120/66 95 Mechanical Ventilator 60.00 08/20/16 19:00 110 08/20/16 18:36 105 29 93 60 08/20/16 18:00 105 26 114/67 93 Mechanical Ventilator 60.00 08/20/16 17:00 101 27 114/62 93 Mechanical Ventilator 60.00 08/20/16 16:58 101 26 93 60 08/20/16 16:39 99.0 08/20/16 16:00 Mechanical Ventilator 60.00 08/20/16 16:00 105 28 132/69 92 Mechanical Ventilator 60.00 08/20/16 15:27 126/69 08/20/16 15:22 92 Mechanical Ventilator 60.00 08/20/16 15:19 103 28 93 70 08/20/16 15:00 102 27 120/63 93 Mechanical Ventilator 70.00 08/20/16 14:00 108 33 137/67 93 Mechanical Ventilator 70.00 08/20/16 13:12 Mechanical Ventilator 70.00 08/20/16 13:08 98 28 93 80 08/20/16 13:00 94 23 119/61 93 Mechanical Ventilator 80.00 08/20/16 13:00 94 08/20/16 12:04 98.0 08/20/16 12:00 Mechanical Ventilator 80.00 08/20/16 12:00 96 26 117/62 94 Mechanical Ventilator 80.00 08/20/16 11:39 97.7 90 27 126/65 91 Mechanical Ventilator 80.00 08/20/16 11:09 90 27 91 80 08/20/16 11:00 94 23 126/65 93 Mechanical Ventilator 80.00 08/20/16 10:24 95 Mechanical Ventilator 80.00 08/20/16 10:00 96 26 118/69 94 Mechanical Ventilator 100.00 08/20/16 09:55 100 08/20/16 09:40 98 28 93 100 08/20/16 09:30 97.7 08/20/16 09:00 91 26 116/68 94 Mechanical Ventilator 100.00 08/20/16 08:00 Mechanical Ventilator 100.00 08/20/16 08:00 101 23 126/73 94 Mechanical Ventilator 100.00 08/20/16 07:41 127/69 08/20/16 07:32 Mechanical Ventilator 100.00 08/20/16 07:32 104 23 94 100 I & O 08/21/16 07:00 Intake Total 4296 ml Output Total 816 ml Balance 3480 ml General Appearance: WD/WN, Mild Distress (on ventilator sedated ) HEENT: PERRL/EOMI Neck: Non Tender, Supple Respiratory: Crackles, Decreased Breath Sounds, Other (INTUBATED) Cardiovascular: Regular Rate, Rhythm Capillary Refill: Less Than 3 Seconds Gastrointestinal: normal bowel sounds, non tender, soft, other (LARGE VENTRAL HERNIA) Extremity: Non Tender, No Calf Tenderness Neurologic/Psychiatric: Other (INTUBATED, SEDATED) Skin: Warm/Dry Lymphatic: No Adenopathy Results Lab Laboratory Tests 08/20/16 04:30 08/21/16 04:43 Assessment/Plan Assessment/Plan Acute on chronic respiratory failure with ARDS Pa02/Fi02 is 124 -Diprivan for sedation Sepsis secondary to pneumonia -Continue Levaquin and Zosyn for now -bernal cultures pending -IVF COPDAE -Steroids, SVNS, oxygen Acute renal failure secondary to vascular depletion -Pt received 2 liters of LR last night Will increase IVF to 150 NS Hypokalemia -replace Schizophrenia/anxiety CAD EF 55-60% DVT/GIppx -cont Pepcid add Lovenox [address] Farias and RN patients condition and medical plan. 45 min spent with patient and medical team Clinical Quality Measures DVT/VTE Risk/Contraindication: Risk Factor Score Per Nursin RFS Level Per Nursing on Admit: 4+=Very High AMY ROJAS DO Aug 21, 2016 07:36
--- NOTE | 2016-08-21 07:48 | Progress Note (SOAP) ---
Subjective Time Seen by Provider: 07:20 Subjective/Events-last exam patient on ventilator and unresponsive. White blood cell count went down to 17,300. GFR 35 has decreased. Patient has chronic and acute respiratory failure. Sepsis due to pneumonia. COPD with acute exacerbation. History of tobaccoism. Pulmonary edema. Schizoaffective disorder. Objective Exam Vital Signs Date Time Temp Pulse Resp B/P (MAP) Pulse Ox O2 Delivery O2 Flow Rate FiO2 08/21/16 07:05 133 26 105/72 90 Mechanical Ventilator 45.00 08/21/16 06:43 112 35 96 45 08/21/16 06:00 120 31 115/64 91 Mechanical Ventilator 45.00 08/21/16 05:00 105 35 99/54 96 Mechanical Ventilator 45.00 08/21/16 04:12 114 35 95 45 08/21/16 04:01 121 43 87 50 08/21/16 04:00 98.5 107 26 129/60 94 Mechanical Ventilator 45.00 08/21/16 04:00 Mechanical Ventilator 45.00 08/21/16 03:35 104 26 114/63 96 Mechanical Ventilator 45.00 08/21/16 03:31 104 08/21/16 03:27 105 28 95 50 08/21/16 03:00 105 29 110/58 95 Mechanical Ventilator 50.00 08/21/16 02:00 105 113/62 95 Mechanical Ventilator 50.00 08/21/16 01:30 107 28 110/60 95 Mechanical Ventilator 50.00 08/21/16 01:05 108 28 95 55 08/21/16 01:00 105 108/62 96 Mechanical Ventilator 55.00 08/21/16 01:00 106 08/21/16 00:39 107 28 111/59 95 Mechanical Ventilator 55.00 08/21/16 00:00 Mechanical Ventilator 55.00 08/21/16 00:00 99.5 104 28 101/55 95 Mechanical Ventilator 55.00 08/20/16 23:46 105 28 96/54 97 Mechanical Ventilator 55.00 08/20/16 23:42 105 28 96 60 08/20/16 23:00 111 28 114/61 94 Mechanical Ventilator 60.00 08/20/16 22:00 110 30 101/54 96 Mechanical Ventilator 60.00 08/20/16 21:52 113 32 105/62 98 Mechanical Ventilator 60.00 08/20/16 21:20 104 28 94 60 08/20/16 21:00 109 28 110/60 94 Mechanical Ventilator 60.00 08/20/16 20:26 112 59 95 60 08/20/16 20:00 Mechanical Ventilator 60.00 08/20/16 20:00 98.7 111 30 114/58 94 Mechanical Ventilator 60.00 08/20/16 19:07 120/66 08/20/16 19:00 109 32 120/66 95 Mechanical Ventilator 60.00 08/20/16 19:00 110 08/20/16 18:36 105 29 93 60 08/20/16 18:00 105 26 114/67 93 Mechanical Ventilator 60.00 08/20/16 17:00 101 27 114/62 93 Mechanical Ventilator 60.00 08/20/16 16:58 101 26 93 60 08/20/16 16:39 99.0 08/20/16 16:00 Mechanical Ventilator 60.00 08/20/16 16:00 105 28 132/69 92 Mechanical Ventilator 60.00 08/20/16 15:27 126/69 08/20/16 15:22 92 Mechanical Ventilator 60.00 08/20/16 15:19 103 28 93 70 08/20/16 15:00 102 27 120/63 93 Mechanical Ventilator 70.00 08/20/16 14:00 108 33 137/67 93 Mechanical Ventilator 70.00 08/20/16 13:12 Mechanical Ventilator 70.00 08/20/16 13:08 98 28 93 80 08/20/16 13:00 94 23 119/61 93 Mechanical Ventilator 80.00 08/20/16 13:00 94 08/20/16 12:04 98.0 08/20/16 12:00 Mechanical Ventilator 80.00 08/20/16 12:00 96 26 117/62 94 Mechanical Ventilator 80.00 08/20/16 11:39 97.7 90 27 126/65 91 Mechanical Ventilator 80.00 08/20/16 11:09 90 27 91 80 08/20/16 11:00 94 23 126/65 93 Mechanical Ventilator 80.00 08/20/16 10:24 95 Mechanical Ventilator 80.00 08/20/16 10:00 96 26 118/69 94 Mechanical Ventilator 100.00 08/20/16 09:55 100 08/20/16 09:40 98 28 93 100 08/20/16 09:30 97.7 7/4/17 09:00 91 26 116/68 94 Mechanical Ventilator 100.00 08/20/16 08:00 Mechanical Ventilator 100.00 08/20/16 08:00 101 23 126/73 94 Mechanical Ventilator 100.00 I & O 08/21/16 07:00 Intake Total 4296 ml Output Total 816 ml Balance 3480 ml Capillary Refill : Less Than 3 Seconds General Appearance: No Apparent Distress, WD/WN Neck: Normal Inspection Respiratory: No Accessory Muscle Use, No Respiratory Distress, Decreased Breath Sounds, Other (on ventilator) Cardiovascular: Regular Rate, Rhythm, No Murmur Gastrointestinal: non tender, soft Results Lab Laboratory Tests 08/21/16 04:43 Laboratory Tests 08/20/16 09:33: Blood Gas Puncture Site RT RADIAL, Blood Gas Patient Temperature 97.7, Arterial Blood pH 7.27*L, Arterial Blood Partial Pressure CO2 68H, Arterial Blood Partial Pressure O2 79, Arterial Blood HCO3 30H, Arterial Blood Total CO2 32.5H , Arterial Blood Oxygen Saturation 95, Arterial Blood Base Excess 3.9H, Westley Test YES-POS, Blood Gas Ventilator Setting YES, Blood Gas Inspired Oxygen 100% 08/20/16 12:43: Glucometer 219H 08/20/16 19:05: Glucometer 269H 08/21/16 00:15: Glucometer 315H 08/21/16 04:43: White Blood Count 17.3H, Red Blood Count 4.43, Hemoglobin 12.2L, Hematocrit 38L , Mean Corpuscular Volume 87, Mean Corpuscular Hemoglobin 28, Mean Corpuscular Hemoglobin Concent 32, Red Cell Distribution Width 14.5, Platelet Count 252, Mean Platelet Volume 9.7, Neutrophils (%) (Auto) 94H, Lymphocytes (%) (Auto) 3L , Monocytes (%) (Auto) 4, Eosinophils (%) (Auto) 0, Basophils (%) (Auto) 0, Neutrophils # (Auto) 16.2H, Lymphocytes # (Auto) 0.5L, Monocytes # (Auto) 0.6, Eosinophils # (Auto) 0.0, Basophils # (Auto) 0.0, Blood Gas Puncture Site LEFT RADIAL, Blood Gas Patient Temperature 99.8, Arterial Blood pH 7.32*L, Arterial Blood Partial Pressure CO2 60H, Arterial Blood Partial Pressure O2 56L, Arterial Blood HCO3 29H, Arterial Blood Total CO2 31.1H, Arterial Blood Oxygen Saturation 87L, Arterial Blood Base Excess 3.8H, Westley Test YES-POS, Blood Gas Ventilator Setting YES, Blood Gas Inspired Oxygen 45%, Sodium Level 136, Potassium Level 3.5L, Chloride Level 98, Carbon Dioxide Level 24, Anion Gap 14, Blood Urea Nitrogen 29H, Creatinine 2.02H, Estimat Glomerular Filtration Rate 35 , BUN/Creatinine Ratio 14, Glucose Level 297H, Calcium Level 8.8, Phosphorus Level 3.2, Magnesium Level 2.1 08/21/16 06:05: Vancomycin Level Trough 13.3 Microbiology 08/17/16 Blood Culture - Preliminary, Resulted No growth Assessment/Plan Assessment/Plan Assess & Plan/Chief Complaint acute on chronic respiratory failure. sepsis due to pneumonia. COPD with acute exacerbation. Pulmonary edema. Schizophrenia. Renal insufficiency Clinical Quality Measures DVT/VTE Risk/Contraindication: Risk Factor Score Per Nursin RFS Level Per Nursing on Admit: 4+=Very High YEN DURÁN DO Aug 21, 2016 07:48
[2016-08-21] MEDS: FAMOTIDINE 20MG/2ML IV (PEPCID) IVP SCH ×2 (08:36→20:39)
[2016-08-21] MEDS: FUROSEMIDE 40 MG/4 ML INJ (LASIX) IVP SCH (08:36)
[2016-08-21] MEDS: HALOPERIDOL 5 MG (HALDOL) TAB PO SCH ×2 (08:37→20:39)
[2016-08-21] MEDS: ENOXAPARIN 40 MG/0.4 ML (LOVENOX) SYR SC SCH (08:37)
[2016-08-21] MEDS: BENZTROPINE MESYLATE 1 MG (COGENTIN) TAB PO SCH ×2 (08:37→20:39)
[2016-08-21] MEDS ORDERED: inSUlin DETERMIR 1 UNIT/0.01 ML (LEVEMIR) CHARGE PER UNIT SQ ONE (08:45)
[2016-08-21] MEDS ORDERED: NS IV 1000 ML 1,000 ML IV SCH (09:30)
[2016-08-21] MEDS ORDERED: NS IV 1000 ML 1,000 ML IV ONE ×3 (11:00→16:30)
[2016-08-21 11:33] LABS: ABG BASE EXCESS -0.4 MMOL/L (-2.5-2.5); ABG HCO3 25 MMOL/L (23-27); ABG OXYGEN SATURATION 73 % (94-100); ABG PCO2 57 MMHG (35-45); ABG PH 7.28 (7.37-7.43); ABG PO2 43 MMHG (79-93); ABG TCO2 27.1 MMOL/L (21.0-31.0)
[2016-08-21 11:34] LABS: ALLENS TEST YES-POS; PATIENT TEMP 99.7
[2016-08-21] MEDS ORDERED: fentaNYL (OMNICELL DRIP KIT ONLY) 250 MCG/5 ML AMP ONE (16:12)
[2016-08-21] MEDS ORDERED: NS (IVPB) 100 ML ONE (16:13)
[2016-08-21] MEDS ORDERED: LACTATED RINGERS 1,000 ML IV ONE ×2 (16:27→16:55)
[2016-08-21] MEDS: fentaNYL INJECTION 1,250 MCG in NS (IVPB) 225 ML IV SCH (16:42)
[2016-08-21] MEDS ORDERED: LACTATED RINGERS 1,000 ML IV SCH (16:45)
[2016-08-21] MEDS: NOREPINEPHRINE 4 MG in D5W 250 ML (IVPB) 250 ML IV SCH (16:53)
--- NOTE | 2016-08-21 17:13 | Diagnostic Imaging Report ---
INDICATION: ET tube placement evaluation. EXAMINATION: Portable chest at 4:51 p.m. FINDINGS: ET tube projects over the trachea in good position. There is an NG tube that appears to enter the stomach. Right upper extremity PICC line tip projects over the SVC. There are diffuse infiltrates in both lungs. There is no effusion or pneumothorax. IMPRESSION: Diffuse pulmonary infiltrates. Support tubes and catheters project over appropriate structures. Dictated by: Dictated on workstation # [id number]
[2016-08-21] MEDS: fentaNYL INJECTION 100 MCG/2 ML AMP IVP PRN ×2 (17:22→17:48)
[2016-08-21] MEDS: methylPREDNISolone 40 MG/ML (Solu-MEDROL) VIAL IV SCH (20:39)
[2016-08-21] MEDS ORDERED: inSUlin DETERMIR 1 UNIT/0.01 ML (LEVEMIR) CHARGE PER UNIT SQ SCH (21:00)
[2016-08-22] VITALS (16 sets, daily range): BP systolic 86–128; BP diastolic 41–69
[2016-08-22] MEDS: PIPERACILLIN SODIUM/TAZOBACTAM 4.5 GM in NS (IVPB) 100 ML IV SCH ×2 (01:09→09:55)
[2016-08-22] MEDS: inSUlin (REGULAR) HUMAN 1 UNIT/0.01 ML (CHARGE PER UNIT) SC SCH ×4 (01:09→12:54)
[2016-08-22] MEDS: RT-ALBUTEROL/IPRATROPIUM 3 ML (DUONEB) VIAL INH SCH ×3 (01:45→09:37)
[2016-08-22] MEDS: NS IV 1000 ML 1,000 ML IV SCH ×2 (03:59→09:56)
[2016-08-22 04:14] LABS: BASOPHILS % (AUTO) 0 % (0-10); EOSINOPHILS % (AUTO) 0 % (0-10); LYMPHOCYTES # (AUTO) 0.8 X 10^3 (1.0-4.0); LYMPHOCYTES % (AUTO) 6 % (12-44); MEAN CORPUSCULAR HEMOGLOBIN 28 PG (25-34); MEAN CORPUSCULAR HGB CONC 32 G/DL (32-36); MEAN CORPUSCULAR VOLUME 88 FL (80-99); MEAN PLATELET VOLUME 9.7 FL (7.4-10.4); MONOCYTES # (AUTO) 0.7 X 10^3 (0.0-1.0); MONOCYTES % (AUTO) 5 % (0-12); NEUTROPHILS # (AUTO) 13.3 X 10^3 (1.8-7.8); NEUTROPHILS % (AUTO) 90 % (42-75); PLATELET COUNT 240 10^3/uL (130-400); RED BLOOD COUNT 4.24 10^6/uL (4.35-5.85); WHITE BLOOD COUNT 14.8 10^3/uL (4.3-11.0)
[2016-08-22] MEDS: PROPOFOL DRIP (ICU) 100 ML IV SCH ×2 (04:20→09:34)
[2016-08-22 04:40] LABS: CALCIUM 8.3 MG/DL (8.5-10.1); CREATININE SERUM 3.21 MG/DL (0.60-1.30); MAGNESIUM 2.2 MG/DL (1.8-2.4); PHOSPHORUS 4.5 MG/DL (2.3-4.7); POTASSIUM 4.6 MMOL/L (3.6-5.0)
[2016-08-22 04:59] LABS: ABG BASE EXCESS -3.3 MMOL/L (-2.5-2.5); ABG HCO3 24 MMOL/L (23-27); ABG OXYGEN SATURATION 84 % (94-100); ABG PCO2 64 MMHG (35-45); ABG PO2 52 MMHG (79-93); ABG TCO2 25.8 MMOL/L (21.0-31.0)
[2016-08-22 05:03] LABS: ABG PH 7.19 (7.37-7.43); ALLENS TEST YES-POS; PATIENT TEMP 98.1
[2016-08-22] MEDS: NOREPINEPHRINE 4 MG in D5W 250 ML (IVPB) 250 ML IV SCH (06:32)
[2016-08-22] MEDS: MAGNESIUM 1 GM/100 ML IVPB 100 ML IV SCH (06:33)
[2016-08-22] MEDS: POTASSIUM CL 10MEQ/50ML IVPB 50 ML IV SCH (06:33)
[2016-08-22] MEDS: VANCOMYCIN 1500 MG/NS 500 ML IVPB IV SCH ×2 (06:39)
[2016-08-22] MEDS: LEVOFLOXACIN 750 MG/150 ML IV 150 ML IV SCH (06:40)
--- NOTE | 2016-08-22 06:43 | Pulmonary Progress Note ---
Subjective Time Seen by Provider: 06:30 Subjective/Events-last exam Pt's renal function is worsening with oliguria even after fluid boluses. Atelectasis and pulmonary edema is worse. Exam Exam Vital Signs Date Time Temp Pulse Resp B/P (MAP) Pulse Ox O2 Delivery O2 Flow Rate FiO2 08/22/16 06:00 99 27 117/58 97 Mechanical Ventilator 60.00 08/22/16 05:00 101 24 116/58 92 Mechanical Ventilator 60.00 08/22/16 04:20 98 08/22/16 04:00 99 28 94 60 08/22/16 04:00 Mechanical Ventilator 60 08/22/16 04:00 101 23 108/59 92 Mechanical Ventilator 60.00 08/22/16 04:00 98.1 08/22/16 03:00 101 17 102/56 94 Mechanical Ventilator 60.00 08/22/16 02:00 105 24 98/56 92 Mechanical Ventilator 60.00 08/22/16 01:46 103 28 92 60 08/22/16 01:00 105 08/22/16 01:00 101 17 96/52 92 Mechanical Ventilator 60.00 08/22/16 00:00 98.0 08/22/16 00:00 102 28 91 60 08/22/16 00:00 Mechanical Ventilator 60 08/22/16 00:00 105 25 102/52 91 Mechanical Ventilator 60.00 08/21/16 23:00 105 27 98/55 93 Mechanical Ventilator 60.00 08/21/16 22:44 106 08/21/16 22:00 108 24 102/54 92 Mechanical Ventilator 60.00 08/21/16 21:40 108 26 92 60 08/21/16 21:00 112 27 85/50 93 Mechanical Ventilator 60.00 08/21/16 20:00 99.6 08/21/16 20:00 Mechanical Ventilator 60 08/21/16 20:00 114 21 90/49 92 Mechanical Ventilator 60.00 08/21/16 20:00 114 25 92 60 08/21/16 19:00 117 08/21/16 19:00 116 25 95/48 93 Mechanical Ventilator 60.00 08/21/16 18:25 120 28 90 60 08/21/16 18:00 124 46 87/49 91 Mechanical Ventilator 60.00 08/21/16 17:22 131 45 114/57 91 Mechanical Ventilator 08/21/16 17:00 133 38 112/61 92 Mechanical Ventilator 60.00 08/21/16 16:10 140 37 90 60 08/21/16 16:00 140 33 101/52 91 Mechanical Ventilator 60.00 08/21/16 16:00 Mechanical Ventilator 60 08/21/16 16:00 99.9 Mechanical Ventilator 60.00 08/21/16 15:00 140 35 127/60 92 Mechanical Ventilator 60.00 08/21/16 14:00 123 38 97/51 91 Mechanical Ventilator 60.00 08/21/16 13:51 Mechanical Ventilator 60.00 08/21/16 13:51 135 34 90 60 08/21/16 13:00 121 29 78/53 88 Mechanical Ventilator 50.00 08/21/16 13:00 121 08/21/16 12:36 137 111/52 45.00 08/21/16 12:00 Mechanical Ventilator 50 08/21/16 12:00 99.7 Mechanical Ventilator 50.00 08/21/16 12:00 124 35 89/51 90 Mechanical Ventilator 50.00 08/21/16 11:00 124 39 99/57 90 Mechanical Ventilator 50.00 08/21/16 10:16 Mechanical Ventilator 50.00 08/21/16 10:16 130 42 90 50 08/21/16 10:00 128 16 130/74 92 Mechanical Ventilator 45.00 08/21/16 09:47 130 37 113/59 92 Mechanical Ventilator 08/21/16 09:00 134 22 139/77 94 Mechanical Ventilator 45.00 08/21/16 08:30 115 38 91 45 08/21/16 08:00 112 37 106/60 94 Mechanical Ventilator 45.00 08/21/16 08:00 98.9 Mechanical Ventilator 45.00 08/21/16 08:00 Mechanical Ventilator 45 08/21/16 07:05 133 26 105/72 90 Mechanical Ventilator 45.00 08/21/16 07:00 124 37 105/72 89 Mechanical Ventilator 45.00 08/21/16 07:00 124 08/21/16 06:43 112 35 96 45 I & O 08/22/16 07:00 Intake Total 4731 ml Output Total 450 ml Balance 4281 ml General Appearance: WD/WN, Mild Distress (on ventilator sedated ) HEENT: PERRL/EOMI Neck: Non Tender, Supple Respiratory: Crackles, Decreased Breath Sounds, Other (INTUBATED) Cardiovascular: Regular Rate, Rhythm Capillary Refill: Less Than 3 Seconds Gastrointestinal: normal bowel sounds, non tender, soft, other (LARGE VENTRAL HERNIA) Extremity: Non Tender, No Calf Tenderness Neurologic/Psychiatric: Other (INTUBATED, SEDATED) Skin: Warm/Dry Lymphatic: No Adenopathy Results Lab Laboratory Tests 08/21/16 04:43 08/22/16 04:05 Assessment/Plan Assessment/Plan Acute on chronic respiratory failure with ARDS Pa02/Fi02 is 87 -Diprivan for sedation -Worsening pulmonary infiltration with atelectasis and probable mucous plugging. -Will do bronchoscopy this AM after obtaining consent. Sepsis secondary to pneumonia -Continue Levaquin and Zosyn for now -bernal cultures pending -IVF COPDAE -Steroids, SVNS, oxygen Acute renal failure -worse even after increasing IVF -Oliguria with UO of 15cc/hr through night -Give lasix 40mg X 1 Schizophrenia/anxiety CAD EF 55-60% DVT/GIppx -cont Pepcid add Lovenox d/w family and Dr. Farias regarding transferring for possible HD. D/w Brother who is next to kin and helps patient make medical decisions regarding current condition and need to transfer for possible HD. His brother wants everything done for patient and he is ok with transfer for HD. Called [facility] transfer line and d/w transfer RN. They are suppose to call back with bed info. 233 120 min spent with patient, medical team, and family discussing plan of care and current medical status. Clinical Quality Measures DVT/VTE Risk/Contraindication: Risk Factor Score Per Nursin RFS Level Per Nursing on Admit: 4+=Very High AMY ROJAS DO Aug 22, 2016 06:43
[2016-08-22] MEDS ORDERED: FUROSEMIDE 40 MG/4 ML INJ (LASIX) IVP ONE (06:45)
[2016-08-22] MEDS ORDERED: inSUlin REGULAR TPN/DRIP 250 UNITS/NS 250 ML IV SCH ×2 (07:15)
[2016-08-22] MEDS ORDERED: SODIUM BICARBONATE 8.4% VIAL 150 MEQ in D5W 1000 ML IV SOLUTION 1,000 ML IV SCH (07:15)
--- NOTE | 2016-08-22 07:24 | Progress Note (SOAP) ---
Subjective Time Seen by Provider: 07:10 Subjective/Events-last exam patient doing worse. Kidney function shutting down. Chest x-ray worse yesterday. Plan to transfer to [facility] for dialysis. Respiratory failure. Hypoxia. Objective Exam Vital Signs Date Time Temp Pulse Resp B/P (MAP) Pulse Ox O2 Delivery O2 Flow Rate FiO2 08/22/16 06:34 100 33 96 60 08/22/16 06:00 99 27 117/58 97 Mechanical Ventilator 60.00 08/22/16 05:00 101 24 116/58 92 Mechanical Ventilator 60.00 08/22/16 04:20 98 08/22/16 04:00 99 28 94 60 08/22/16 04:00 Mechanical Ventilator 60 08/22/16 04:00 101 23 108/59 92 Mechanical Ventilator 60.00 08/22/16 04:00 98.1 08/22/16 03:00 101 17 102/56 94 Mechanical Ventilator 60.00 08/22/16 02:00 105 24 98/56 92 Mechanical Ventilator 60.00 08/22/16 01:46 103 28 92 60 08/22/16 01:00 105 08/22/16 01:00 101 17 96/52 92 Mechanical Ventilator 60.00 08/22/16 00:00 98.0 08/22/16 00:00 102 28 91 60 08/22/16 00:00 Mechanical Ventilator 60 08/22/16 00:00 105 25 102/52 91 Mechanical Ventilator 60.00 08/21/16 23:00 105 27 98/55 93 Mechanical Ventilator 60.00 08/21/16 22:44 106 08/21/16 22:00 108 24 102/54 92 Mechanical Ventilator 60.00 08/21/16 21:40 108 26 92 60 08/21/16 21:00 112 27 85/50 93 Mechanical Ventilator 60.00 08/21/16 20:00 99.6 08/21/16 20:00 Mechanical Ventilator 60 08/21/16 20:00 114 21 90/49 92 Mechanical Ventilator 60.00 08/21/16 20:00 114 25 92 60 08/21/16 19:00 117 08/21/16 19:00 116 25 95/48 93 Mechanical Ventilator 60.00 08/21/16 18:25 120 28 90 60 08/21/16 18:00 124 46 87/49 91 Mechanical Ventilator 60.00 08/21/16 17:22 131 45 114/57 91 Mechanical Ventilator 08/21/16 17:00 133 38 112/61 92 Mechanical Ventilator 60.00 08/21/16 16:10 140 37 90 60 08/21/16 16:00 140 33 101/52 91 Mechanical Ventilator 60.00 08/21/16 16:00 Mechanical Ventilator 60 08/21/16 16:00 99.9 Mechanical Ventilator 60.00 08/21/16 15:00 140 35 127/60 92 Mechanical Ventilator 60.00 08/21/16 14:00 123 38 97/51 91 Mechanical Ventilator 60.00 08/21/16 13:51 Mechanical Ventilator 60.00 08/21/16 13:51 135 34 90 60 08/21/16 13:00 121 29 78/53 88 Mechanical Ventilator 50.00 08/21/16 13:00 121 08/21/16 12:36 137 111/52 45.00 08/21/16 12:00 Mechanical Ventilator 50 08/21/16 12:00 99.7 Mechanical Ventilator 50.00 08/21/16 12:00 124 35 89/51 90 Mechanical Ventilator 50.00 08/21/16 11:00 124 39 99/57 90 Mechanical Ventilator 50.00 08/21/16 10:16 Mechanical Ventilator 50.00 08/21/16 10:16 130 42 90 50 08/21/16 10:00 128 16 130/74 92 Mechanical Ventilator 45.00 08/21/16 09:47 130 37 113/59 92 Mechanical Ventilator 08/21/16 09:00 134 22 139/77 94 Mechanical Ventilator 45.00 08/21/16 08:30 115 38 91 45 08/21/16 08:00 112 37 106/60 94 Mechanical Ventilator 45.00 08/21/16 08:00 98.9 Mechanical Ventilator 45.00 08/21/16 08:00 Mechanical Ventilator 45 I & O 08/22/16 07:00 Intake Total 4731 ml Output Total 450 ml Balance 4281 ml Capillary Refill : Less Than 3 Seconds General Appearance: No Apparent Distress, WD/WN Respiratory: No Accessory Muscle Use, No Respiratory Distress, Other (patient on vent nonresponsive) Cardiovascular: Regular Rate, Rhythm Results Lab Laboratory Tests 08/21/16 08:00: Lactic Acid Level 1.14, B-Type Natriuretic Peptide 81.5 08/21/16 11:23: Blood Gas Puncture Site RT RADIAL, Blood Gas Patient Temperature 99.7, Arterial Blood pH 7.28*L, Arterial Blood Partial Pressure CO2 57H, Arterial Blood Partial Pressure O2 43L, Arterial Blood HCO3 25, Arterial Blood Total CO2 27.1, Arterial Blood Oxygen Saturation 73L, Arterial Blood Base Excess -0.4, Westley Test YES-POS, Blood Gas Ventilator Setting YES, Blood Gas Inspired Oxygen 50% 08/21/16 12:20: Glucometer 255H 08/21/16 16:37: Glucometer 304H 08/21/16 20:18: Glucometer 257H 08/22/16 00:59: Glucometer 278H 08/22/16 04:05: White Blood Count 14.8H, Red Blood Count 4.24L, Hemoglobin 11.8L, Hematocrit 37L , Mean Corpuscular Volume 88, Mean Corpuscular Hemoglobin 28, Mean Corpuscular Hemoglobin Concent 32, Red Cell Distribution Width 15.0H, Platelet Count 240, Mean Platelet Volume 9.7, Neutrophils (%) (Auto) 90H, Lymphocytes (%) (Auto) 6L , Monocytes (%) (Auto) 5, Eosinophils (%) (Auto) 0, Basophils (%) (Auto) 0, Neutrophils # (Auto) 13.3H, Lymphocytes # (Auto) 0.8L, Monocytes # (Auto) 0.7, Eosinophils # (Auto) 0.0, Basophils # (Auto) 0.0, Sodium Level 137, Potassium Level 4.6, Chloride Level 104, Carbon Dioxide Level 22, Anion Gap 11, Blood Urea Nitrogen 44H, Creatinine 3.21#H, Estimat Glomerular Filtration Rate 20, BUN /Creatinine Ratio 14, Glucose Level 327H, Calcium Level 8.3L, Phosphorus Level 4.5, Magnesium Level 2.2 08/22/16 04:06: Glucometer 300H 08/22/16 04:50: Blood Gas Puncture Site RT RAD, Blood Gas Patient Temperature 98.1, Arterial Blood pH 7.19*L, Arterial Blood Partial Pressure CO2 64H, Arterial Blood Partial Pressure O2 52L, Arterial Blood HCO3 24, Arterial Blood Total CO2 25.8, Arterial Blood Oxygen Saturation 84L, Arterial Blood Base Excess -3.3L, Westley Test YES-POS, Blood Gas Ventilator Setting YES, Blood Gas Inspired Oxygen 60% Microbiology 08/17/16 Blood Culture - Preliminary, Resulted No growth 08/17/16 Gram Stain - Final, Resulted 08/17/16 Sputum Culture - Preliminary, Resulted Gram Negative Howie Normal andrea Assessment/Plan Assessment/Plan Assess & Plan/Chief Complaint acute on chronic respiratory failure. sepsis due to pneumonia. COPD with acute exacerbation. Pulmonary edema. Schizophrenia. Renal insufficiency. . 08/22/16. Renal failure. Acute on chronic respiratory failure. Pneumonia. COPD with acute exacerbation. Patient be transferred to [facility] Clinical Quality Measures DVT/VTE Risk/Contraindication: Risk Factor Score Per Nursin RFS Level Per Nursing on Admit: 4+=Very High YEN DURÁN DO Aug 22, 2016 07:24
--- NOTE | 2016-08-22 07:31 | Diagnostic Imaging Report ---
INDICATION: Shortness of breath. Portable chest 4:55 AM FINDINGS: There is an ET tube projecting over the trachea. NG tube enters the stomach. Right upper extremity PICC line tip projects over the SVC. There is cardiomegaly with diffuse alveolar infiltrate. IMPRESSION: Diffuse alveolar opacification could be due to pneumonia or pulmonary edema. The opacity of lungs has increased compared to the previous day. Dictated by: Dictated on workstation # [id number]
--- NOTE | 2016-08-22 07:47 | Pulmonary Procedures ---
Pulmonary Procedures Date of Procedure Date of Service: Aug 22, 2016 Bronch Bronchoscopy with transbronchial washes Preop DX SHOAIB and mucous plugging Postop DX: same Complications: none After informed consent obtained and formal time out pt was sedated using propofol. Bronchoscope was advanced through the nare and vocal cords. An anatomical tour was undertaken down to the segmental bronchi bilaterally. No endobronchial lesions noted.bilateral transbronchial washes were obtained. Pt tolerated procedure well. No complications noted. Stat CXR is pending. AMY ROJAS DO Aug 22, 2016 07:47
--- NOTE | 2016-08-22 08:20 | Diagnostic Imaging Report ---
INDICATION: Post bronchoscopy Frontal chest obtained at 801 hours am, and compared with 08/22/16. ET tube is unchanged tip overlying mid trachea. NG tube and PICC line are unchanged. Extensive interstitial infiltrate is again noted with some patchy alveolar infiltrate in both bases. There is no pneumothorax. Impression: Stable life-support lines. Unchanged diffuse interstitial infiltrate with patchy bilateral basilar alveolar infiltrates. There is no pneumothorax or other new finding. Dictated by: Dictated on workstation # [id number]
[2016-08-22 08:56] LABS: ABG BASE EXCESS -3.4 MMOL/L (-2.5-2.5); ABG HCO3 24 MMOL/L (23-27); ABG OXYGEN SATURATION 82 % (94-100); ABG PCO2 66 MMHG (35-45); ABG PO2 49 MMHG (79-93); ABG TCO2 26.1 MMOL/L (21.0-31.0)
[2016-08-22 08:58] LABS: ABG PH 7.18 (7.37-7.43); ALLENS TEST YES-POS
[2016-08-22 08:59] LABS: PATIENT TEMP 97.7
[2016-08-22] MEDS ORDERED: SODIUM BICARB 8.4% 50 MEQ/50 ML (ABBOTT) SYR IV ONE (09:30)
[2016-08-22] MEDS: fentaNYL INJECTION 1,250 MCG in NS (IVPB) 225 ML IV SCH (09:41)
[2016-08-22] MEDS: BENZTROPINE MESYLATE 1 MG (COGENTIN) TAB PO SCH (09:54)
[2016-08-22] MEDS: methylPREDNISolone 40 MG/ML (Solu-MEDROL) VIAL IV SCH (09:55)
[2016-08-22] MEDS: ENOXAPARIN 40 MG/0.4 ML (LOVENOX) SYR SC SCH (09:55)
[2016-08-22] MEDS: HALOPERIDOL 5 MG (HALDOL) TAB PO SCH (09:55)
[2016-08-22 10:28] LABS: ABG BASE EXCESS -0.3 MMOL/L (-2.5-2.5); ABG HCO3 26 MMOL/L (23-27); ABG OXYGEN SATURATION 89 % (94-100); ABG PCO2 60 MMHG (35-45); ABG PH 7.26 (7.37-7.43); ABG PO2 49 MMHG (79-93); ABG TCO2 28.2 MMOL/L (21.0-31.0)
[2016-08-22 10:29] LABS: PATIENT TEMP 96.8
[2016-08-22] MEDS ORDERED: inSUlin DETERMIR 1 UNIT/0.01 ML (LEVEMIR) CHARGE PER UNIT SQ SCH (21:00)
[2016-08-23] MEDS ORDERED: BENZTROPINE MESYLATE 1 MG (COGENTIN) TAB PO SCH (07:00)
[2016-08-23] MEDS ORDERED: HALOPERIDOL 5 MG (HALDOL) TAB PO SCH (07:00)
[2016-08-23] MEDS ORDERED: FAMOTIDINE 20MG/2ML IV (PEPCID) IVP SCH (09:00)
[2016-08-24] MEDS ORDERED: LEVOFLOXACIN 750 MG/150 ML IV 150 ML IV SCH (07:00)
== END 2016-08-22 12:30 | disposition short-term general hospital (02) | DRG 166 ==
LOC: EDUNIT# 23:34 → ER 23:36 → ICU 08-18 02:20
PROVIDERS: ADMIT Family Medicine; ATTEND Family Medicine
PROC: 5A1945Z Respiratory Ventilation, 24-96 Consecutive Hours (ICD-10-PCS; principal; 2016-08-20)
PROC: 0B9M8ZX Drainage of Bilateral Lungs, Via Natural or Artificial Opening Endoscopic, Diagnostic (ICD-10-PCS; 2016-08-22)
DX: J96.21 Acute and chronic respiratory failure with hypoxia (principal); A41.9 Sepsis, unspecified organism; J44.0 Chronic obstructive pulmonary disease with (acute) lower respiratory infection; J18.9 Pneumonia, unspecified organism; J44.1 Chronic obstructive pulmonary disease with (acute) exacerbation; E87.1 Hypo-osmolality and hyponatremia; J81.1 Chronic pulmonary edema; N17.9 Acute kidney failure, unspecified; E11.65 Type 2 diabetes mellitus with hyperglycemia; F17.210 Nicotine dependence, cigarettes, uncomplicated; I25.10 Atherosclerotic heart disease of native coronary artery without angina pectoris; F41.9 Anxiety disorder, unspecified; F32.9 Major depressive disorder, single episode, unspecified; F20.9 Schizophrenia, unspecified; E83.42 Hypomagnesemia; E87.6 Hypokalemia; T17.990A Other foreign object in respiratory tract, part unspecified in causing asphyxiation, initial encounter; Z99.81 Dependence on supplemental oxygen; Z79.4 Long term (current) use of insulin; Z87.11 Personal history of peptic ulcer disease
CPT/HCPCS: 36415; 36569; 51702; 71010; 76937; 80048; 80053; 80202; 81000; 82805; 82962; 83605; 83735; 83880; 84100; 84484; 85007; 85025; 85027; 85610; 85730; 87040; 87070; 87077; 87101; 87116; 87186; 87205; 93005; 94002; 94003; 94640; 94660; 94799; 96361; 96365; 96375